=== PATIENT | male | born 1995 | race Caucasian/White ===

== ENCOUNTER 2019-03-16 14:43 | Inpatient (IN) | payer OTHER ==
--- NOTE | 2019-03-16 15:24 | ED ---
Psychiatric Complaint - HPI Summary HPI Summary: This pt is a 24 Y/O M presenting to [facility] accompanied by his mother with a CC of depression and suicidal ideations without a plan. He states that he was here for similar symptoms of depression a couple years ago. Currently he is in a medication change which he believes is affecting him. He states that he is increasing in weight, has been having trouble getting out of bed, states that he cant function in society and is currently having paranoia. He has no alleviating factors. He denies any fever, chills, N/V, abdominal pain, CP, SOB, homicidal ideations and headaches. He states that he has a PMHx of depression and a FHx of depression. - History Of Current Complaint Chief Complaint: EDMentalHealth Time Seen by Provider: 03/16/19 15:08 Hx Obtained From: Patient Onset/Duration: Gradual Onset, Still Present Timing: Constant Severity Initially: Moderate Severity Currently: Moderate Character: Depressed Aggravating Factor(s): Other - medication changes Alleviating Factor(s): Nothing Associated Signs And Symptoms: Positive: Negative - fever, chills, N/V, abdominal pain, CP, SOB, homicidal ideations and headaches, Paranoid Behavior, Sleep Disturbance, Social Withdrawal Related History: Positive For: Prior Psychiatric Issues Has Suicidal: Reports: Thoughts. Denies: With A Plan Has Homicidal: Denies: Thoughts, With A Plan Recent Stressor(s): medication changes - Allergies/Home Medications Allergies/Adverse Reactions: Allergies Allergy/AdvReac Type Severity Reaction Status Date / Time sulfamethoxazole Allergy Rash Verified 03/16/19 14:48 [From Bactrim] trimethoprim [From Bactrim] Allergy Rash Verified 03/16/19 14:48 PMH/Surg Hx/FS Hx/Imm Hx Previously Healthy: Yes Endocrine/Hematology History: Denies: Hx Diabetes Cardiovascular History: Denies: Hx Hypertension Respiratory History: Reports: Hx Asthma - as a child per pt. GI History: Reports: Other GI Disorders - anal fissure Psychiatric History: Reports: Hx Anxiety, Hx Depression, Hx Community Mental Health Tx Denies: Hx Eating Disorder, Hx of Violent Episodes Against Others - Surgical History Surgical History: None - Immunization History Immunizations Up to Date: Yes Infectious Disease History: No Infectious Disease History: Denies: History Other Infectious Disease, Traveled Outside the [place] in Last 30 Days - Family History Known Family History: Positive: Cardiac Disease - paternal , Other - depression : mother - Social History Occupation: Employed Full-time Lives: Alone Alcohol Use: Rare Hx Substance Use: No Substance Use Type: Reports: None Hx Tobacco Use: No Smoking Status (MU): Never Smoked Tobacco Review of Systems Negative: Fever, Chills Negative: Sore Throat Negative: Chest Pain Negative: Shortness Of Breath Negative: Abdominal Pain, Vomiting, Nausea Negative: Headache Psychological: Other - States Suicidal ideations, social withdrawl, paranoia Positive: Depressed, Other - NEGATIVE: homicidal ideations All Other Systems Reviewed And Are Negative: Yes Physical Exam - Summary Physical Exam Summary: VITAL SIGNS: Reviewed. GENERAL: Patient is a well-developed and obese male who is lying comfortable in the stretcher. Patient is not in any acute respiratory distress. HEAD AND FACE: No signs of trauma. No ecchymosis, hematomas or skull depressions. No sinus tenderness. EYES: PERRLA, EOMI x 2, No injected conjunctiva, no nystagmus. EARS: Hearing grossly intact. Ear canals and tympanic membranes are within normal limits. MOUTH: Oropharynx within normal limits. NECK: Supple, trachea is midline, no adenopathy, no JVD, no carotid bruit, no c- spine tenderness, neck with full ROM CHEST: Symmetric, no tenderness at palpation LUNGS: Clear to auscultation bilaterally. No wheezing or crackles. CVS: Regular rate and rhythm, S1 and S2 present, no murmurs or gallops appreciated. ABDOMEN: Soft, non-tender. No signs of distention. No rebound no guarding, and no masses palpated. Bowel sounds are normal. EXTREMITIES: FROM in all major joints, no edema, no cyanosis or clubbing. NEURO: Alert and oriented x 3. No acute neurological deficits. Speech is normal and follows commands. SKIN: Dry and warm Triage Information Reviewed: Yes Vital Signs On Initial Exam: Initial Vitals Temp Pulse Resp BP Pulse Ox 97.2 F 74 16 161/98 99 03/16/19 14:45 03/16/19 14:45 03/16/19 14:45 03/16/19 14:45 03/16/19 14:45 Vital Signs Reviewed: Yes Procedures - Sedation Patient Received Moderate/Deep Sedation with Procedure: No Diagnostics - Vital Signs Vital Signs Temp Pulse Resp BP Pulse Ox 03/16/19 14:45 97.2 F 74 16 161/98 99 - Laboratory Result Diagrams: 03/16/19 15:54 03/16/19 15:54 Lab Statement: Any lab studies that have been ordered have been reviewed, and results considered in the medical decision making process. Re-Evaluation - Re-Evaluation First Eval Re-Evaluation Time: 16:09 Change: Unchanged Comment: Pt was medically cleared for a MHE. Course/Dx - Course Assessment/Plan: This patient is a 24-year-old male who presents to the emergency room with a chief complaint of having suicidal ideation without a plan. Blood work w/o a significant abnormality. He is medically cleared. Patient will be signed out to Dr. Bhakta at shift change. He is awaiting a MHE. Patient is hemodynamically stable and A+O x 3. - Differential Dx/Clinical Impression Differential Diagnosis/HQI/PQRI: Positive: Depression, Suicidal Ideation - Will Provider Diagnosis: Depression - Physician Notifications Patient Is Medically Stable For: Psych Evaluation Discharge ED - Sign-Out/Discharge Documenting (check all that apply): Sign-Out Patient Signing out patient TO: Pierce Robles - Discharge Plan Condition: Stable Referrals: Andre Barajas MD [Medical Doctor] - - Billing Disposition and Condition Condition: STABLE - Attestation Statements Document Initiated by Aileen: Yes Documenting Scribe: Angel Salazar Provider For Whom Aileen is Documenting (Include Credential): Toño Frias MD Scribe Attestation: Angel Smart, scribed for Toño Frias MD on 03/16/19 at 1855. Scribe Documentation Reviewed: Yes Provider Attestation: The documentation as recorded by the Angel lopez accurately reflects the service I personally performed and the decisions made by me, Toño Frias MD Status of Scribe Document: Viewed
[2019-03-16 15:59] LABS: Urine Benzodiazepine Screen None Detected (None Detect); Urine Opiates Screen None Detected (None Detect)
[2019-03-16 16:00] LABS: ABS Basophils 0.1 10^3/ul (0-0.2); ABS Eosinophils 0.1 10^3/ul (0-0.6); ABS Lymphocytes 1.9 10^3/ul (1.0-4.8); ABS Monocytes 0.5 10^3/ul (0-0.8); ABS Neutrophils 3.6 10^3/ul (1.5-7.7); Eosinophil % 1.5 %; Hematocrit 44 % (42-52); Hemoglobin 15.2 g/dL (14.0-18.0); Lymphocyte % 30.1 %; Mean Corpuscular HGB Conc 34 g/dL (31-36); Mean Corpuscular Hemoglobin 28 pg (27-31); Mean Corpuscular Volume 81 fL (80-94); Mean Platelet Volume 8.1 fL (7.4-10.4); Nucleated Red Blood Cells % 0.1; Platelet Count 196 10^3/uL (150-450); Red Blood Count 5.52 10^6 /uL (4.18-5.48); Red Cell Distribution Width 13 % (10-15); White Blood Count 6.2 10^3/uL (3.5-10.8)
[2019-03-16 16:21] LABS: ALT 19 U/L (7-52); AST 21 U/L (13-39); Acetaminophen < 15 mcg/mL; Albumin 4.6 g/dL (3.2-5.2); Albumin/Globulin Ratio 1.6 (1-3); Alcohol < 10 mg/dL (<10); Alkaline Phosphatase 64 U/L (34-104); Anion Gap 7 mmol/L (2-11); BUN/Creatinine Ratio 15.4 (8-20); Blood Urea Nitrogen 14 mg/dL (6-24); CO2 Carbon Dioxide 27 mmol/L (22-32); Chloride 108 mmol/L (101-111); EGFR African American 122.8 (>60); EGFR Non-African American 101.5 (>60); Globulin 2.8 g/dL (2-4); Glucose 110 mg/dL (70-100); Potassium 4.2 mmol/L (3.5-5.0); Salicylate < 2.50 mg/dL (<30); Sodium 142 mmol/L (135-145); Total Protein 7.4 g/dL (6.4-8.9)
[2019-03-16 16:35] LABS: TSH (Thyroid Stimulating Horm) 4.43 mcIU/mL (0.34-5.60)
[2019-03-16 17:41] LABS: Urine Appearance Clear; Urine Color Yellow; Urine Specific Gravity 1.015 (1.010-1.030); Urine Urobilinogen Negative (Negative)
[2019-03-16 17:42] LABS: Urine Bilirubin Negative (Negative); Urine Blood Negative (Negative); Urine Glucose Negative (Negative); Urine Ketones Negative (Negative); Urine Nitrite Negative (Negative); Urine Protein 1+(30 mg/dL) (Negative)
[2019-03-16 18:05] LABS: Urine Bacteria Absent (Absent); Urine Red Blood Cell Absent (Absent); Urine White Blood Cell Absent (Absent)
--- NOTE | 2019-03-16 19:12 | ED ---
Progress - Progress Note Progress Note: Patient is received as a sign out from Dr. Frias to Dr. Robles at 03/16/19 1900 shift change pending disposition of this mental health patient. - Consult/PCP Time Called: 18:25 Re-Evaluation - Re-Evaluation First Eval Re-Evaluation Time: 16:09 Change: Unchanged Comment: Pt was medically cleared for a MHE. Course/Dx - Course Course Of Treatment: Patient is received as a sign out from Dr. Frias to Dr. Robles at 03/16/19 1900 shift change pending disposition of this mental health patient. churn tender Brie reports that the patient's case has been reviewed by Dr. Cole, patient will be a voluntary admit to [facility] psych. - Diagnoses Provider Diagnoses: Psychosis - Provider Notifications Discussed Care Of Patient With: Garret Cole Time Discussed With Above Provider: 20:12 Instructed by Provider To: Other - churn tender Brie reports that the patient' s case has been reviewed by Dr. Cole, patient will be a voluntary admit to [facility] psych. Discharge ED - Sign-Out/Discharge Documenting (check all that apply): Patient Departure - admit, Receiving Sign- Out Receiving patient FROM: Toño Frias - Discharge Plan Condition: Stable Disposition: PSYCHIATRIC FACILITY-[facility] - Billing Disposition and Condition Condition: STABLE Disposition: Psychiatric Facility [facility] - Attestation Statements Document Initiated by Aileen: Yes Documenting Scribe: GURMEET BRAMBILA Provider For Whom Aileen is Documenting (Include Credential): LASHAY ROBLES MD Scribe Attestation: GURMEET Smart scribed for LASHAY ROBLES MD on 03/17/19 at 0538. Scribe Documentation Reviewed: Yes Provider Attestation: The documentation as recorded by the GURMEET lopez accurately reflects the service I personally performed and the decisions made by me, LASHAY ROBLES MD Status of Scribe Document: Viewed
[2019-03-16] MEDS ORDERED: Al Hydrox/Mg Hydrox/Simet LIQ* 30 ML UDC PO PRN (21:49)
[2019-03-16] MEDS: traZODone TAB* 50 MG TAB PO SCH (23:15)
[2019-03-17] MEDS: Vitamin THERAPEUTIC TAB PO SCH (08:32)
[2019-03-17] MEDS: Lisinopril TAB* 10 MG PO SCH (08:32)
[2019-03-17] MEDS: Venlafaxine EXT RELEASE CAP* 75 MG PO SCH (11:45)
[2019-03-17] MEDS: cloNIDine TAB* 0.1 MG PO PRN (12:28)
[2019-03-17] MEDS: busPIRone TAB* 10 MG PO SCH ×2 (16:45→20:48)
--- NOTE | 2019-03-17 20:39 | HP ---
HISTORY AND PHYSICAL: DATE OF ADMISSION: 03/16/19 SUPERVISING PSYCHIATRIST: Hugo Hawley MD.* (DICTATED BY GARCIA LEOS NP) JUSTIFICATION FOR ADMISSION: The patient presented to the the emergency department with suicidal thoughts. The patient merits hospitalization for immediate safety and stabilization. CHIEF COMPLAINT: "I have stressing thoughts." HISTORY OF PRESENT ILLNESS: Leonidas is a 24-year-old white male, domiciled, unemployed who presented to the emergency department self referred with his father due to increased anxiety, difficulty leaving the house, and suicidal ideation in the past week. This is Leonidas's fourth hospitalization. His last hospitalization was at [facility] [place] 2014 at the same time of year. He had been here once in 2012 and twice in 2013. The patient reports he has been having increased difficulty with irritability, agitation, concentration. He states that he has trouble staying asleep and often tosses and turns a lot. He reports he has poor self-confidence and loses a lot of jobs because of this. He reports he is living with his father and is concerned about losing housing because this was supposed to be a temporary housing situation. The patient reports stopping prescribed Trintellix about 8 to 9 months ago. Since then he has been increasingly depressed, more irritable, and verbally agitated towards family. He reports overeating and stress eating carbs and snacks high in sodium. He states that he thought Trintellix was making him have increased weight. He denies obsessions or compulsions. He denies auditory or visual hallucinations. He states that he is working with [facility] and sees psych nurse practitioner Luisa Cowart and a psych pulmonary physical therapist named Sonny Orozco and a therapist named Lui. According to collateral, the patient was seeing a different therapist who is currently on maternity leave. It appears he is anxious to transition to this other therapist. The patient states that the team has encouraged him to go to the recovery center, what seems to be like a [facility] setup. He is quick to say that his parents do not think he should go there because it is primarily substance use people who go. He states that he went once and it was okay. It is more likely that he is avoiding interactions with other people. The patient reports he does not watch TV, but spends a majority of his time watching [employer] videos. He states that he has difficulty sleeping as stated above. I asked about his sleep pattern. He tends to go to sleep around 8 p.m. and sleeps until 2 or 3 a.m. He wakes up and takes trazodone and then sleeps for another 2 to 3 hours. He states that he spends a majority of his days in bed. He states that he has poor concentration and is concerned about ADHD. He also states that his current team is ruling out autism spectrum disorder. He tells me that his Team told him to come down here for an evaluation. He gave me the authority to and I did speak with his psychiatric nurse practitioner Luisa Cowart at [facility]. She saw him on Sunday of last week , 3 days after he had seen his primary care provider. She states that he often presents as anxious and wants to meet more often than necessary. She reports that she prescribed Ativan x1 for a job interview that he had scheduled for today. She states that Sonny Orozco is his psych pulmonary physical therapist who has been working with him very closely. He calls him daily, goes to his house often. The patient told me that Sonny is off this week. Luisa states that Sonny has been to the home and describes it as poorly cared for with multiple unpacked boxes. She states that Leonidas's father tends to be very demeaning to him, does not talk to him or treat him like he likes him. There has been limited reciprocal information from the father, but there is no known risk of Leonidas losing housing. She states that he wanted to stop Trintellix and has been weaning down, that he has been weaning more slowly than directed. I told her of my suggestion to change Trintellix to Effexor and she was agreeable with this. PAST PSYCHIATRIC HISTORY: As stated above. The patient is an active client of [facility] in [place]. He has been a client of [facility] [place] and saw Ruma Mills at the time. He was in therapy in the 11th grade and saw Gricelda Harvey. In the past, he has been a client of [facility]. INPATIENT: The patient denies any inpatient stays other than [facility]. He was hospitalized in 2018 and in February 2014 and March 2014. He had diagnoses at that time of major depressive disorder, social anxiety, rule out obsessive compulsive disorder, history of dysthymia. MEDICATION HISTORY: 1. Fluoxetine as high as 70 mg. 2. Bupropion. 3. Alprazolam. 4. Clonazepam. 5. Lorazepam. 6. Celexa. 7. Hydroxyzine. 8. Lamotrigine. 9. Venlafaxine. 10. Quetiapine. TRAUMA/ABUSE HISTORY: The patient's grandmother in 2011, the patient was very close to her. The patient's mother has a history of alcoholism. PAST MEDICAL HISTORY: 1. Hypertension. 2. Childhood asthma. 3. Anal fissure. 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 CURRENT MEDICATIONS: 1. Trintellix 10 mg p.o. daily. 2. Buspirone 10 mg 3 times a day. 3. Lisinopril 10 mg daily. 4. Trazodone 100 mg p.o. q.h.s. p.r.n. 5. Lorazepam 1 mg daily x3 days, was recently prescribed per [facility] and this was clarified by his outpatient prescriber. ALLERGIES: SULFA. FAMILY PSYCHIATRIC HISTORY: Mother with alcoholism, sister with depression, maternal uncle with opioid addiction. SOCIAL HISTORY: The patient was born in [place] and lived in [place] when they were young. They lived in a mobile home park and then moved to [place]. His parents in 2008. The patient has 2 older sisters, they live in the area. He has lived in between his father and his mother at various times. He reports living in [place] with his father for the last 2 years. He graduated from [employer], went to [employer] for about a year. He has worked at [employer] most recently up until 8 months ago. 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 The patient denies alcohol or substance use. Urine drug screen is negative. REVIEW OF SYSTEMS: Constitutional: Negative. No fever, chills, or fatigue. ENT : Negative. Cardiovascular: Negative. Denies chest pain or palpations. Respiratory: Negative. Denies shortness of breath or cough. Genitourinary: Negative. Musculoskeletal: Negative. Neurological: Negative. PHYSICAL EXAMINATION GENERAL: The patient is well-appearing and well-nourished, in no apparent distress. VITAL SIGNS: Height 5 feet 11 inches, weight 340 pounds. T 97.6, P 62, RR 18, O2 sat 100% on room air. BP 146/78. HEENT: Head and face: Normal head and face inspection. Eyes: Positive EOMI. PERRLA. Conjunctivae clear. NECK: Supple. Full ROM. Trachea midline. RESPIRATORY: Lung sounds clear to auscultation. Breath sounds present. CARDIOVASCULAR: Heart RRR. Pulses are symmetrical in both upper and lower extremities. MUSCULOSKELETAL: Normal Strength. ROM intact. NEUROLOGICAL: Normal sensory, motor intact. Alert and oriented x3 with normal gait. Cerebellar function intact. SKIN: Warm and dry. Color reflects adequate perfusion. LABORATORY DATA: CBC: RBC 5.52. Chemistry generally unremarkable. TSH is normal at 4.43. Urinalysis 1+ protein. Toxicology negative for salicylates, acetaminophen or alcohol. Urine drug screen is negative. MENTAL STATUS EXAM: Leonidas is a 24-year-old white male who appears slightly younger than stated age. He is causally dressed in his own clothing. Morbidly obese. His face is flushed. His eye contact is intense. He is anxiously cooperative. He is alert and oriented x3. Speech is soft with staccato rhythm. Concentration poor. Memory is 3/3. Mood is anxious with restricted affect. He is often shaking his legs bilaterally and alternately. Thought process is circumstantial, overinclusive. Thought content is positive for suicidal ideation and passive wish. He denies auditory or visual hallucinations. There are no perceptual disturbances noted. Insight and judgment are poor. Fund of knowledge is adequate. He appears to have average intellect by virtue of vocabulary and educational attainment. DIAGNOSES: 1. Major depressive disorder severe without psychotic features. 2. Generalized anxiety disorder, rule out obsessive compulsive disorder. 3. Binge eating disorder. ASSESSMENT: Leonidas is a 24-year-old white male with a history of depression, social anxiety, and psychiatric hospitalizations in the remote past, who presented to the ED due to worsening depression, anxiety, and suicidal thoughts. He has been working with [facility] in the recent past, although he is not stating that this is effective. He has been intermittently adherent to medications and been working with psych pulmonary physical therapist to help with vocational and other resources. Just so happens this pulmonary physical therapist is gone this week and the patient was recently transitioned to another therapist due to maternity leave. He has fears of losing housing, this will need to be clarified with his family. The patient was given much information about treating symptoms with various methods along with psychopharmacology as he is very medication focused. He has poor insight into anxiety and is concerned about other diagnoses. PLAN: The patient is admitted to adult behavioral services unit on voluntary status. Code status is full. He was placed on 15-minute checks for his safety. He is encouraged to participate in supportive milieu, individual sessions with staff and psychoeducational groups. We have already begun to obtain collateral from his current outpatient providers in [place]. The patient was tapered down off Trintellix, we will stop this and switch to venlafaxine for better treatment of depression and anxiety. The patient was offered clonidine p.r.n. for anxiety, and we will resume buspirone 10 three times a day. Estimated length of stay is 3 to 5 days. Discharge planning will include family involvement and outpatient providers. GARCIA LEOS NP [id number]/CPS #: [id number] MEGAN
[2019-03-17] MEDS: traZODone TAB* 50 MG TAB PO SCH (20:49)
[2019-03-18] MEDS: Venlafaxine EXT RELEASE CAP* 75 MG PO SCH (08:54)
[2019-03-18] MEDS: Lisinopril TAB* 10 MG PO SCH (08:54)
[2019-03-18] MEDS: busPIRone TAB* 10 MG PO SCH ×3 (08:54→21:33)
[2019-03-18] MEDS: Vitamin THERAPEUTIC TAB PO SCH (08:55)
--- NOTE | 2019-03-18 17:32 | PN ---
Subjective - Subjective Date of Service: 03/18/19 Service Type: 93178 Hosp care 35 min high complexity Subjective: Patient's father, Lui and sister, Annmarie were present for noon visiting hours. Manager Poker, Mando Witt GRAPHIC ARTS TECHNICIAN and above met for over one hour. We discussed diagnosis of FLORENCE and recommendations. Patient and family members asked pertinent questions and seemed receptive to feedback. We discussed patient strengths and potential motivating factors. Medication recommendations and rationale discussed. Patient had submitted 72-hour notice yesterday. He was given option to discharge today and preferred to remain in hospital to benefit from programming. Objective - General Observations Appearance: Well Groomed Stature: Overweight Posture: WNL Eye Contact: Intermittent Behavior/Activity: WNL - Interaction Observations Attitude Towards Examiner: Cooperative, Anxious Attitude Towards Parent/Guardian: Positive Interaction, Immature Stated Mood: Anxious Affect: Restricted Speech Pattern/Tone: Clear, Appropriate, Normal Volume Thought Process: Circumstantial, Racing Perception: WNL Thought Content: Preoccupation/Ruminations, Self-Deprecatory, Phobic Thought Process: Lethality: Passive Wish Hallucination Type: Denies Delusion Type: Denies - Cognitive Function Orientation: A&O x 4 Level of Consciousness: Alert Cognition: Impaired Attention/Concentration Estimated Intelligence: Normal Insight: Difficulty Acknowledging Presence of Psyciatric Problems Judgment Within Normal Limits: No Ability to Make Reasonable Decisions: Moderately Impaired - Medication Compliance Cooperative with Inpatient Medication Regimen: Yes - Group Participation Participates in Group Activities: Yes Assessment - Assessment Merits Inpatient Hospitalization: For Immediate Safety, For Stabilization Inpatient DSM-V Dx: 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 He has been intermittently adherent to medications and increasingly avoidant of socialization. He merits hospitalization for immediate safety and stabilization. Plan - Plan Treatment Plan: Name: LYN DICKINSON Birthdate: 1995 [id number] continue acute intensive psychiatric treatment. continue current medications. encourage journaling thoughts. discharge by end of week. Continued Medication Management: Start Medication Medications: Current Medications Acetaminophen (Tylenol Tab*) 650 mg PO Q4H PRN PRN Reason: PAIN or TEMP > 101 F Al Hydrox/Mg Hydrox/Simethicone (Maalox Plus*) 30 ml PO Q4H PRN PRN Reason: INDIGESTION Buspirone HCl (Buspar Tab*) 10 mg PO TID [facility] Last Admin: 03/18/19 14:18 Dose: 10 mg Clonidine HCl (Catapres Tab*) 0.1 mg PO TID PRN PRN Reason: AGITATION/ANXIETY Last Admin: 03/17/19 12:28 Dose: 0.1 mg Lisinopril (Prinivil Tab*) 10 mg PO DAILY [facility] Last Admin: 03/18/19 08:54 Dose: 10 mg Multivitamins (Theragran Tab*) 1 tab PO DAILY [facility] Last Admin: 03/18/19 08:55 Dose: Not Given Trazodone HCl (Desyrel Tab*) 150 mg PO BEDTIME [facility] Last Admin: 03/17/19 20:49 Dose: 150 mg Venlafaxine HCl (Effexor Xr Cap*) 75 mg PO DAILY [facility] Last Admin: 03/18/19 08:54 Dose: 75 mg - Discharge Plan Discharge Plan: Inpatient Hospitalization
[2019-03-18] MEDS: traZODone TAB* 50 MG TAB PO SCH (21:33)
[2019-03-19 06:50] LABS: HDL Cholesterol 33.2 mg/dL
[2019-03-19] MEDS: Lisinopril TAB* 10 MG PO SCH (08:01)
[2019-03-19] MEDS: Vitamin THERAPEUTIC TAB PO SCH (09:45)
[2019-03-19] MEDS: busPIRone TAB* 10 MG PO SCH ×3 (09:45→22:32)
[2019-03-19] MEDS: Venlafaxine EXT RELEASE CAP* 75 MG PO SCH (09:45)
--- NOTE | 2019-03-19 13:11 | PN ---
Subjective - Subjective Date of Service: 03/19/19 Service Type: [id number] Hosp care 15 min low complexity Subjective: Patient reports continued anxiety and ruminating about such. He reports improved sleep in that he was awake until 9 or 930 and woke around 3am. He is encouraged to attempt to stay awake later to promote improved sleep/wake cycle. Patient reminded to journal thoughts and to utilize prn medication. Objective - General Observations Appearance: Well Groomed Stature: Overweight Posture: Slumped Eye Contact: Average Behavior/Activity: WNL - Interaction Observations Attitude Towards Examiner: Cooperative, Anxious Stated Mood: Anxious Affect: Restricted Speech Pattern/Tone: Clear, Appropriate, Quiet Volume Thought Process: Circumstantial, Racing Perception: WNL Thought Content: Preoccupation/Ruminations, Depressive, Self-Deprecatory Thought Process: Lethality: Passive Wish Hallucination Type: Denies Delusion Type: Denies - Cognitive Function Orientation: A&O x 4 Level of Consciousness: Alert Cognition: Impaired Attention/Concentration Estimated Intelligence: Normal Insight: Difficulty Acknowledging Presence of Psyciatric Problems Judgment Within Normal Limits: No Ability to Make Reasonable Decisions: Moderately Impaired - Medication Compliance Cooperative with Inpatient Medication Regimen: Partial - Group Participation Participates in Group Activities: Partial Assessment - Assessment Merits Inpatient Hospitalization: For Immediate Safety, For Stabilization Inpatient DSM-V Dx: 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 He has been intermittently adherent to medications and increasingly avoidant of socialization. He merits hospitalization for immediate safety and stabilization. Plan - Plan Treatment Plan: Name: LYN DICKINSON Birthdate: 1995 [id number] continue acute intensive psychiatric treatment. continue current medications. encourage journaling thoughts and prn medication. discharge by end of week. Medications: Current Medications Acetaminophen (Tylenol Tab*) 650 mg PO Q4H PRN PRN Reason: PAIN or TEMP > 101 F Al Hydrox/Mg Hydrox/Simethicone (Maalox Plus*) 30 ml PO Q4H PRN PRN Reason: INDIGESTION Buspirone HCl (Buspar Tab*) 10 mg PO TID [facility] Last Admin: 03/19/19 09:45 Dose: 10 mg Clonidine HCl (Catapres Tab*) 0.1 mg PO TID PRN PRN Reason: AGITATION/ANXIETY Last Admin: 03/17/19 12:28 Dose: 0.1 mg Lisinopril (Prinivil Tab*) 10 mg PO DAILY [facility] Last Admin: 03/19/19 08:01 Dose: 10 mg Multivitamins (Theragran Tab*) 1 tab PO DAILY [facility] Last Admin: 03/19/19 09:45 Dose: Not Given Trazodone HCl (Desyrel Tab*) 150 mg PO BEDTIME [facility] Last Admin: 03/18/19 21:33 Dose: 150 mg Venlafaxine HCl (Effexor Xr Cap*) 150 mg PO DAILY [facility] - Discharge Plan Discharge Plan: Inpatient Hospitalization
[2019-03-19] MEDS: cloNIDine TAB* 0.1 MG PO PRN (13:34)
[2019-03-19] MEDS: traZODone TAB* 50 MG TAB PO SCH (22:16)
[2019-03-20] MEDS: Lisinopril TAB* 10 MG PO SCH (08:06)
[2019-03-20] MEDS: Vitamin THERAPEUTIC TAB PO SCH (08:06)
[2019-03-20] MEDS: busPIRone TAB* 10 MG PO SCH (08:58)
[2019-03-20] MEDS: Venlafaxine EXT RELEASE CAP* 75 MG PO SCH ×2 (09:24→11:05)
[2019-03-20] MEDS: cloNIDine TAB* 0.1 MG PO PRN (15:18)
--- NOTE | 2019-03-20 15:50 | PN ---
Subjective - Subjective Date of Service: 03/20/19 Service Type: [id number] Hosp care 15 min low complexity Subjective: Patient reports side effects and describes somatic complaints that are likely related to anxiety and panic. He reports feeling "spacey" yesterday and waking with feeling like he has sand in his eyes. Materials Scientist proposed possibility of viral sinus congestion. Patient encouraged to practice thought-stopping when thinking of medications and distract self. Encouraged to start to practice giving attention to previous suggestions for treatment of negative and anxious thoughts. Patient was offered to discharge today or to rescind 72-hour notice. Patient rescinded 72-hour notice. Objective - General Observations Appearance: Well Groomed Stature: Overweight Posture: WNL Eye Contact: Average Behavior/Activity: Agitated - Interaction Observations Attitude Towards Examiner: Cooperative, Anxious Stated Mood: Anxious Affect: Restricted Speech Pattern/Tone: Clear, Appropriate, Normal Volume Thought Process: Circumstantial, Racing Perception: WNL Thought Content: Preoccupation/Ruminations, Self-Deprecatory Thought Process: Lethality: Passive Wish Hallucination Type: Denies Delusion Type: Denies - Cognitive Function Orientation: A&O x 4 Level of Consciousness: Alert Cognition: Impaired Attention/Concentration Estimated Intelligence: Normal Insight: Difficulty Acknowledging Presence of Psyciatric Problems Judgment Within Normal Limits: No Ability to Make Reasonable Decisions: Moderately Impaired - Medication Compliance Cooperative with Inpatient Medication Regimen: Partial - Group Participation Participates in Group Activities: Yes Assessment - Assessment Merits Inpatient Hospitalization: For Immediate Safety, For Stabilization Inpatient DSM-V Dx: 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 He has been intermittently adherent to medications and increasingly avoidant of socialization. He merits hospitalization for immediate safety and stabilization. Plan - Plan Treatment Plan: Name: LYN DICKINSON Birthdate: 1995 [id number] continue acute intensive psychiatric treatment. may decrease to q30min and allow staff pass per RN discretion increase effexor XR to 150mg daily. DC buspirone. encourage journaling thoughts and prn medication. discharge to include outpatient providers and family. Medications: Current Medications Acetaminophen (Tylenol Tab*) 650 mg PO Q4H PRN PRN Reason: PAIN or TEMP > 101 F Al Hydrox/Mg Hydrox/Simethicone (Maalox Plus*) 30 ml PO Q4H PRN PRN Reason: INDIGESTION Clonidine HCl (Catapres Tab*) 0.1 mg PO TID PRN PRN Reason: AGITATION/ANXIETY Last Admin: 03/20/19 15:18 Dose: 0.1 mg Lisinopril (Prinivil Tab*) 10 mg PO DAILY [facility] Last Admin: 03/20/19 08:06 Dose: 10 mg Multivitamins (Theragran Tab*) 1 tab PO DAILY [facility] Last Admin: 03/20/19 08:06 Dose: Not Given Trazodone HCl (Desyrel Tab*) 150 mg PO BEDTIME [facility] Last Admin: 03/19/19 22:16 Dose: 100 mg Venlafaxine HCl (Effexor Xr Cap*) 150 mg PO DAILY [facility] Last Admin: 03/20/19 11:05 Dose: 150 mg - Discharge Plan Discharge Plan: Inpatient Hospitalization
[2019-03-20] MEDS: traZODone TAB* 50 MG TAB PO SCH (21:00)
[2019-03-21] MEDS: Venlafaxine EXT RELEASE CAP* 75 MG PO SCH (08:44)
[2019-03-21] MEDS: Lisinopril TAB* 10 MG PO SCH (08:44)
[2019-03-21] MEDS: Vitamin THERAPEUTIC TAB PO SCH (08:45)
[2019-03-21] MEDS: cloNIDine TAB* 0.1 MG PO PRN (12:07)
--- NOTE | 2019-03-21 14:18 | PN ---
Subjective - Subjective Date of Service: 03/21/19 Service Type: [id number] Hosp care 25 min moderate complexity Subjective: Patient reports utilizing distracting and calming techniques that were helpful for initiating sleep. He states he slept more soundly and woke up feeling calm. He states the calmness lasted approx 3 hours. He continues to endorse negative self talk and ruminating about what other people think about him. He states yesterday's visit with his father was "colin rough" and he describes blaming his father for learning poor communication styles. Land Surveyor Manager reframed to model an "I statement" he could use with his father. He is encouraged to play board games and such during visits with father. He states he played chess with his mother yesterday, which she initiated. He states he would be able to initiate games with father. Patient reports he gets overwhelmed when his mother expresses her stressors to him and that he is willing to express this to her. Patient education done regarding cognitive distortions and thought/mood record. He reports desire to work on this throughout the weekend. He journaled positive affirmations and read these aloud. Patient given much praise and validation for progress. Objective - General Observations Appearance: Well Groomed Stature: Overweight Posture: WNL Eye Contact: Average Behavior/Activity: WNL - Interaction Observations Attitude Towards Examiner: Cooperative, Anxious Stated Mood: Dysphoric, Anxious Affect: Blunted Speech Pattern/Tone: Clear, Appropriate, Normal Volume Thought Process: Circumstantial, Racing Perception: WNL Thought Content: Preoccupation/Ruminations, Self-Deprecatory Thought Process: Lethality: Passive Wish Hallucination Type: Denies Delusion Type: Denies - Cognitive Function Orientation: A&O x 4 Level of Consciousness: Alert Cognition: Impaired Attention/Concentration Estimated Intelligence: Normal Insight: WNL Judgment Within Normal Limits: Yes Ability to Make Reasonable Decisions: Moderately Impaired - Medication Compliance Cooperative with Inpatient Medication Regimen: Yes - Group Participation Participates in Group Activities: Yes Assessment - Assessment Merits Inpatient Hospitalization: For Immediate Safety, For Stabilization Inpatient DSM-V Dx: 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 He has been intermittently adherent to medications and increasingly avoidant of socialization. He merits hospitalization for immediate safety and stabilization. Plan - Plan Treatment Plan: Name: LYN DICKINSON Birthdate: 1995 [id number] continue acute intensive psychiatric treatment. may decrease to q30min and allow staff pass per RN discretion continue current medications. encourage CBT homework and prn medication. discharge to include outpatient providers and family. Medications: Current Medications Acetaminophen (Tylenol Tab*) 650 mg PO Q4H PRN PRN Reason: PAIN or TEMP > 101 F Al Hydrox/Mg Hydrox/Simethicone (Maalox Plus*) 30 ml PO Q4H PRN PRN Reason: INDIGESTION Clonidine HCl (Catapres Tab*) 0.1 mg PO TID PRN PRN Reason: AGITATION/ANXIETY Last Admin: 03/21/19 12:07 Dose: 0.1 mg Lisinopril (Prinivil Tab*) 10 mg PO DAILY [facility] Last Admin: 03/21/19 08:44 Dose: 10 mg Multivitamins (Theragran Tab*) 1 tab PO DAILY [facility] Last Admin: 03/21/19 08:45 Dose: Not Given Trazodone HCl (Desyrel Tab*) 150 mg PO BEDTIME [facility] Last Admin: 03/20/19 21:00 Dose: 150 mg Venlafaxine HCl (Effexor Xr Cap*) 150 mg PO DAILY [facility] Last Admin: 03/21/19 08:44 Dose: 150 mg - Discharge Plan Discharge Plan: Inpatient Hospitalization
[2019-03-21] MEDS: traZODone TAB* 50 MG TAB PO SCH (22:12)
[2019-03-22] MEDS: Lisinopril TAB* 10 MG PO SCH (08:05)
[2019-03-22] MEDS: Venlafaxine EXT RELEASE CAP* 75 MG PO SCH (10:05)
[2019-03-22] MEDS: Vitamin THERAPEUTIC TAB PO SCH (10:05)
[2019-03-22] MEDS: cloNIDine TAB* 0.1 MG PO PRN (18:29)
[2019-03-22] MEDS: traZODone TAB* 50 MG TAB PO SCH (21:07)
[2019-03-22] MEDS ORDERED: diPHENhydraMINE PO* 25 MG PO ONE (22:20)
[2019-03-22] MEDS ORDERED: diPHENhydraMINE PO* 25 MG ONE (22:30)
[2019-03-23] MEDS: cloNIDine TAB* 0.1 MG PO PRN ×3 (01:31→13:33)
[2019-03-23] MEDS: Vitamin THERAPEUTIC TAB PO SCH (08:41)
[2019-03-23] MEDS: Lisinopril TAB* 10 MG PO SCH (08:41)
[2019-03-23] MEDS: Venlafaxine EXT RELEASE CAP* 75 MG PO SCH (08:41)
[2019-03-23] MEDS: Acetaminophen TAB* 325 MG PO PRN (11:12)
[2019-03-23] MEDS ORDERED: Ondansetron TAB* 4 MG PO ONE (17:00)
[2019-03-23] MEDS: traZODone TAB* 50 MG TAB PO SCH (21:52)
[2019-03-24] MEDS: cloNIDine TAB* 0.1 MG PO PRN (03:33)
[2019-03-24] MEDS: Vitamin THERAPEUTIC TAB PO SCH (08:19)
[2019-03-24] MEDS: Lisinopril TAB* 10 MG PO SCH (08:19)
[2019-03-24] MEDS: Venlafaxine EXT RELEASE CAP* 75 MG PO SCH (08:19)
[2019-03-24] MEDS: GuaiFENesin DM 100 mg/10 mg in 5 ML UDC PO PRN ×2 (13:47→21:28)
[2019-03-24] MEDS ORDERED: diPHENhydraMINE PO* 50 MG PO PRN (15:57)
[2019-03-24] MEDS: Saline NASAL SPRAY 0.65%* BTL BOTH NARES PRN (16:25)
[2019-03-24] MEDS: Benzocaine/Menthol LOZ* 1 LOZENGE MT PRN ×2 (16:25→18:44)
[2019-03-24] MEDS: LORazepam TAB(*) 1 MG PO PRN (16:27)
--- NOTE | 2019-03-24 16:58 | PN ---
Subjective - Subjective Date of Service: 03/24/19 Service Type: [id number] Hosp care 35 min high complexity Subjective: Patient submitted 72-hour notice. He states he would prefer to be transferred to another psychiatric facility, that there is tension between he and staff members, that he wants to disregard any more treatment from here. He presents as extremely guarded and mistrustful of race and sports book writer. He states he wants me and SW to speak with his father but that he must be present when doing so. We phoned his father on speaker phone. Lyn states he is concerned about safety and being treated poorly by staff. He states they are looking at him in a disgusted manner and that he is guilty of "saying bad stuff about people in the past." Patient agrees to trial risperidone and lorazepam. He states he has side effects from venlafaxine and is agreeable to switch to duloxetine. He is experiencing symptoms of a cold and appropriately asks for benadryl, nasal spray , sore throat drops and mucinex. Objective - General Observations Appearance: Well Groomed Stature: Overweight Posture: Tense Eye Contact: Intense Behavior/Activity: Agitated - Interaction Observations Attitude Towards Examiner: Anxious, Mistrustful Stated Mood: Irritable, Anxious Affect: Restricted Speech Pattern/Tone: Clear, Appropriate, Quiet Volume Thought Process: Goal Directed, Circumstantial Perception: WNL Thought Content: Preoccupation/Ruminations, Paranoid Thought Process: Lethality: Paranoid Ideation Hallucination Type: Auditory, Visual Delusion Type: Persecution, Somatic - Cognitive Function Orientation: A&O x 4 Level of Consciousness: Alert Cognition: WNL Estimated Intelligence: Normal Insight: Mostly Blames Others for Problems, Difficulty Acknowledging Presence of Psyciatric Problems Judgment Within Normal Limits: No Ability to Make Reasonable Decisions: Serverely Impaired - Medication Compliance Cooperative with Inpatient Medication Regimen: Yes - Group Participation Participates in Group Activities: Yes Assessment - Assessment Merits Inpatient Hospitalization: For Immediate Safety, For Stabilization Inpatient DSM-V Dx: 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 He has been intermittently adherent to medications and increasingly avoidant of socialization. Since admission, he is more verbally expressive and endorsing paranoid ideation as well as AH and VH. He merits hospitalization for immediate safety and stabilization. Plan - Plan Treatment Plan: Name: LYN DICKINSON Birthdate: 1995 [id number] continue acute intensive psychiatric treatment. may decrease to q30min and allow staff pass per RN discretion may use computer per RN discretion. DC venlafaxine, trial duloxetine. add risperidone 2mg qhs and lorazepam 1mg q4h prn anxiety. For sinus congestion: add guaifenesin, saline nasal spray, cepacol lozenges and diphenhydramine. Continued Medication Management: Start Medication Medications: Current Medications Acetaminophen (Tylenol Tab*) 650 mg PO Q4H PRN PRN Reason: PAIN or TEMP > 101 F Last Admin: 03/23/19 11:12 Dose: 650 mg Al Hydrox/Mg Hydrox/Simethicone (Maalox Plus*) 30 ml PO Q4H PRN PRN Reason: INDIGESTION Last Admin: 03/24/19 01:29 Dose: 30 ml Diphenhydramine HCl (Benadryl Po*) 50 mg PO BEDTIME PRN PRN Reason: insomnia/allergic reaction Duloxetine HCl (Cymbalta Cap*) 60 mg PO DAILY [facility] Guaifenesin/Dextromethorphan (Robitussin Dm*) 10 ml PO Q6H PRN PRN Reason: COUGH Last Admin: 03/24/19 13:47 Dose: 10 ml Lisinopril (Prinivil Tab*) 10 mg PO DAILY [facility] Last Admin: 03/24/19 08:19 Dose: 10 mg Lorazepam (Ativan Tab(*)) 1 mg PO Q4H PRN PRN Reason: ANXIETY Last Admin: 03/24/19 16:27 Dose: 1 mg Multivitamins (Theragran Tab*) 1 tab PO DAILY [facility] Last Admin: 03/24/19 08:19 Dose: 1 tab Risperidone (Risperdal*) 2 mg PO BEDTIME [facility] Sodium Chloride (Sodium Chloride 0.65% Nasal [facility]*) 1 spray BOTH NARES Q4H PRN PRN Reason: CONGESTION Last Admin: 03/24/19 16:25 Dose: 1 spray Throat Lozenges (Chloraseptic Zenon*) 1 zenon MT Q2HR PRN PRN Reason: Sore Throat Last Admin: 03/24/19 16:25 Dose: 1 zenon Trazodone HCl (Desyrel Tab*) 150 mg PO BEDTIME [facility] Last Admin: 03/23/19 21:52 Dose: 150 mg - Discharge Plan Discharge Plan: Inpatient Hospitalization
[2019-03-24] MEDS: Acetaminophen TAB* 325 MG PO PRN (18:44)
[2019-03-24] MEDS: risperiDONE TAB* 2 MG PO SCH (21:27)
[2019-03-24] MEDS: traZODone TAB* 50 MG TAB PO SCH (21:28)
[2019-03-25] MEDS: Saline NASAL SPRAY 0.65%* BTL BOTH NARES PRN ×3 (04:51→17:25)
[2019-03-25] MEDS: GuaiFENesin DM 100 mg/10 mg in 5 ML UDC PO PRN ×2 (04:52→11:09)
[2019-03-25] MEDS: Benzocaine/Menthol LOZ* 1 LOZENGE MT PRN ×3 (04:52→15:24)
[2019-03-25] MEDS: DULoxetine DR CAP* 60 MG CAP.DR PO SCH (08:27)
[2019-03-25] MEDS: Lisinopril TAB* 10 MG PO SCH (08:27)
[2019-03-25] MEDS: Vitamin THERAPEUTIC TAB PO SCH (08:31)
[2019-03-25] MEDS: LORazepam TAB(*) 1 MG PO PRN (12:26)
[2019-03-25] MEDS ORDERED: Ibuprofen TAB* 600 MG PO PRN (13:32)
[2019-03-25] MEDS: risperiDONE TAB* 2 MG PO SCH (21:07)
[2019-03-25] MEDS: traZODone TAB* 50 MG TAB PO SCH (21:07)
[2019-03-26] MEDS: Lisinopril TAB* 10 MG PO SCH (08:11)
[2019-03-26] MEDS: Vitamin THERAPEUTIC TAB PO SCH (08:11)
[2019-03-26] MEDS: DULoxetine DR CAP* 60 MG CAP.DR PO SCH (08:11)
[2019-03-26 08:58] VITALS: BP 144/84
--- NOTE | 2019-03-26 10:23 | DCNOTE ---
Subjective - Subjective Service Types: 01247 Hosp DC Day Mgmt simple under 30 min Discharge Date: 03/26/19 Subjective: Patient reports improved sleep and anxiety. He states he is ready for discharge. Both of his parents have reported much improvement in his presentation. Coverstitch Machine Operator and Mnado Witt LMSW notified patient and family of much improved social interactions and verbal communication. Patient noted to smile and even laugh at times. Patient's mother present for discharge. He has demonstrated improvement in reframing negative and paranoid thoughts. He reports motivation to continue with [facility] and recovery efforts. Objective - General Observations Appearance: Well Groomed Stature: Overweight Posture: WNL Eye Contact: Average Behavior/Activity: WNL - Interaction Observations Attitude Towards Examiner: Cooperative Attitude Towards Parent/Guardian: Positive Interaction Stated Mood: Euthymic Affect: Full Speech Pattern/Tone: Clear, Appropriate, Normal Volume Thought Process: Coherent, Goal Directed Perception: WNL Thought Content: Preoccupation/Ruminations Hallucination Type: Denies Delusion Type: Denies - Cognitive Function Orientation: A&O x 4 Level of Consciousness: Alert Cognition: WNL Estimated Intelligence: Normal Insight: WNL Judgment Within Normal Limits: Yes - Medication Compliance Cooperative with Inpatient Medication Regimen: Yes - Group Participation Participates in Group Activities: Yes DC Assessment - Assessment Clinical Impression: 24yo wm, domiciled, unemployed with history of 3 previous hospitalizations who presented to ED with c/o worsening anxiety and suicidal ideation. He has been intermittently adherent to medications and increasingly avoidant of socialization. Since admission, he is more verbally expressive and endorsing paranoid ideation as well as AH and VH. He tolerated addition of risperidone and lorazepam with good effect. He has stabilized in this structured setting. Merits Inpatient Hospitalization: No Clear for Discharge: Adequate Clinical Respons, Acceptable Safety Profile Inpatient DSM-V Dx: F41.1 Discharge Planning - Discharge Planning Discharge Plan: Outpatient Follow Up Outpatient Program: [facility] Recommendations for Continuing Care: Medication Management, Psychotherapy, Primary Care Followup Medications: Current Medications Diphenhydramine HCl (Benadryl Po*) 50 mg PO BEDTIME PRN PRN Reason: insomnia/allergic reaction Duloxetine HCl (Cymbalta Cap*) 60 mg PO DAILY [facility] Last Admin: 03/26/19 08:11 Dose: 60 mg Guaifenesin/Dextromethorphan (Robitussin Dm*) 10 ml PO Q6H PRN PRN Reason: COUGH Last Admin: 03/25/19 11:09 Dose: 10 ml Ibuprofen (Motrin Tab*) 600 mg PO Q6H PRN PRN Reason: PAIN - MILD Lisinopril (Prinivil Tab*) 10 mg PO DAILY [facility] Last Admin: 03/26/19 08:11 Dose: 10 mg Lorazepam (Ativan Tab(*)) 1 mg PO BID PRN PRN Reason: ANXIETY Last Admin: 03/25/19 12:26 Dose: 1 mg Multivitamins (Theragran Tab*) 1 tab PO DAILY [facility] Last Admin: 03/26/19 08:11 Dose: 1 tab Risperidone (Risperdal*) 2 mg PO BEDTIME [facility] Last Admin: 03/25/19 21:07 Dose: 2 mg Sodium Chloride (Sodium Chloride 0.65% Nasal [facility]*) 1 spray BOTH NARES Q4H PRN PRN Reason: CONGESTION Last Admin: 03/25/19 17:25 Dose: 1 spray Trazodone HCl (Desyrel Tab*) 150 mg PO BEDTIME [facility] Last Admin: 03/25/19 21:07 Dose: 150 mg Discharge Planning: Prescriptions provided for discharge [x] Yes [] No [facility] Patient response to discharge plan: [x] eager for discharge [x] agreeable with discharge plan [] ambivalent about discharge [] disagrees with discharge today
[2019-03-26] MEDS: LORazepam TAB(*) 1 MG PO PRN (10:50)
--- NOTE | 2019-03-27 01:15 | DS ---
CC: [facility] * DISCHARGE SUMMARY: DATE OF ADMISSION: 03/16/19 DATE OF DISCHARGE: 03/26/19 SUPERVISING PSYCHIATRIST: Rick Ruiz MD * (DICTATED BY GARCIA LEOS NP) DISCHARGE DIAGNOSES: Generalized anxiety disorder; major depressive disorder, severe with psychotic features. CONDITION AT THE TIME OF DISCHARGE: Improved. The patient reports improved sleep and anxiety. He states he is ready for discharge. Both of his parents have reported much improvement in his presentation. The patient is noted to have responded well especially to lorazepam and risperidone. He is also taking duloxetine with no untoward effects. He has demonstrated improvement in reframing negative paranoid thoughts. He reports motivation to continue with [address] and recovery efforts. He has denied suicidal ideation throughout the hospitalization. The patient is discharged to home. MENTAL STATUS EXAMINATION: Leonidas is a 24-year-old white male, who appears stated age. He is obese, well groomed, casually dressed. He is cooperative and pleasant. He is alert and oriented x3. Eye contact is good. Speech is soft , articulate, and spontaneous. Concentration is good. Memory is 3/3. Thought process is logical, goal-directed, coherent. Thought content is negative for suicidal ideation and passive wish. He denies any HI or . He continues to endorse mild delusions that other people are thinking negatively about him. There are no other perceptual disturbances noted. Insight and judgment are fair, improved. Fund of knowledge is adequate. Intelligence is estimated to be average. DISCHARGE INSTRUCTIONS GIVEN TO THE PATIENT: A. Medications: 1. Diphenhydramine 50 mg p.o. q.h.s. p.r.n. insomnia. 2. Duloxetine 60 mg p.o. daily. 3. Guaifenesin dextromethorphan OTC he can continue. 4. Ibuprofen OTC. 5. Lisinopril 10 mg p.o. daily. 6. Lorazepam 1 mg p.o. b.i.d. p.r.n. 7. Risperidone 2 mg p.o. q.h.s. 8. Trazodone 150 mg p.o. q.h.s. B. Diet: Regular. Low-cholesterol. C. Activity: As tolerated. Tobacco cessation is not applicable. There are no pending labs or diagnostic studies. Labs were as follows: CBC is normal. Chemistry normal. Hemoglobin A1c is normal at 5.5. Lipid panel showed mildly elevated cholesterol. TSH is normal. Urinalysis is negative. Toxicology is negative. D. Followup care: The patient will return to [facility] in [place] and has an appointment day after discharge with psychiatric nurse practitioner, Luisa Cowart, and he will be scheduled with an appointment with his therapist at that time. E. Substance use followup: Not applicable. HOSPITAL COURSE: Part A: Reason for admission: The patient presented to the emergency department with suicidal thoughts. Leonidas is a 24-year-old white male , domiciled, unemployed, who presented to the ED, self-referred with his father due to increased anxiety, difficulty living in the house, and suicidal ideation in the past week. This is Leonidas's first hospitalization. [place] [facility] [place] the same time of the year. He had been here once in 2012 and twice in 2013. The patient reports he has been having increased difficulty with irritability, agitation, and concentration. He states that he has trouble staying asleep and often tosses and turns a lot. He reports he has poor self competence and loses a lot of jobs because of this. He reports he is living with his father and is concerned about losing housing because this is supposed to be a temporary housing situation. The patient reports stopping prescribed Trintellix about 8 to 9 months ago. Since then, he has been increasingly depressed, more irritable, and verbally agitated towards family. He reports overeating and stress eating carbs and snacks high in sodium. He states that he thought Trintellix was making him have increased weight. He denies obsessions or compulsions. He denies auditory or visual hallucinations. He states that he is working with [facility] and sees psychiatric nurse practitioner, Luisa Cowart, and a psych passenger conductor named Sonny Orozco and a therapist named Lui. According to collateral, the patient was seeing a different therapist, who is currently on maternity leave. It appears he is anxious to transition to this other therapist. The patient states that the team has encouraged him to go to the recovery center, which seems like a [facility] setup. He is quick to say that his parents do not think he should go there because it is primarily substance use. He states that he went once and it was okay. It is more likely he is avoiding interactions with other people. The patient reports he does not watch TV, but spends a majority of his time watching the YouTube videos. He states that he has difficulty sleeping. I asked about his sleep pattern. He tends to go to sleep around 8 p.m. and sleeps until 2 or 3 a.m. He wakes up and takes trazodone and then sleeps for another 2 to 3 hours. He states he spends a majority of his days in bed. He has poor concentration. He states he is concerned about ADHD and the current team is ruling out autism spectrum disorder. He tells me that his team told him to come down here for an evaluation. He gave me the authority to and I did speak with his psychiatric nurse practitioner, Luisa Cowart at [facility]. She saw him on Sunday of last week, 3 days after he had seen his primary care provider. She states he often presents as anxious and wants to meet more often than necessary. She reports that she prescribed Ativan x1 for a job interview that he has had scheduled for today. She states that Sonny Orozco is his psych passenger conductor, who has been working with him very closely. The patient told me that Sonny is off this week. Luisa states that Sonny has been to the home and describes it as poorly cared for with multiple unpacked boxes. She states that Leonidas's father tends to be very demeaning to him, does not talk to him or treat him that like he likes him. There has been limited reciprocal information from the father, but there is no known risk of Leonidas losing housing. She states he wanted to stop Trintellix and has been weaning down, that he has been weaning more slowly than directed. I told her of my suggestion to change Trintellix to Effexor and she is agreeable with this. Part B: Psychiatric treatment rendered: The patient was admitted to adult behavioral services unit on voluntary status. Code status is full. He was placed on 15-minute checks for safety. He was encouraged to participate in the supportive milieu, individual sessions with staff and psychoeducational groups. Since the patient was being tapered off of Trintellix, we stopped and switched to venlafaxine for better treatment of depression and anxiety. The patient was offered clonidine p.r.n. for anxiety and initially we resumed buspirone three times a day. The following day, the patient submitted 72-hour notice. He did not feel the hospital was going to be treating him correctly. He met with his father and sister along with commercial underwriter and adoption social worker, Mando Penaloza LMSW. We discussed the diagnosis of FLORENCE and recommendations. The patient and family members asked pertinent questions and seemed receptive to feedback. We discussed the patient's strengths and potential motivating factors. Recommendation for medication and the rationale were discussed. He was given option to be discharged today or to resend a 72-hour notice, and he preferred to remain in the hospital. The patient reported much somatic complaints and attributed this to medications. He requested to stop buspirone, which was respected and done. He reported night sweats and various other side effects. Some of these were likely attributed to anxiety. He attributed to venlafaxine. We discontinued venlafaxine and switched to duloxetine, which the patient took without any untoward effects. Throughout the hospitalization, the patient was increasingly guarded. He endorsed visual and auditory hallucinations. He submitted another 72-hour notice. He stated that he would prefer to be transferred to another psychiatric facility. He stated that there was tension between he and staff members and that he wanted to disregard anymore treatment from here. He presented as extremely guarded and was threatful of this commercial underwriter. He wanted me to speak with his father, but only with him and adoption social worker present. We phoned his father on a speaker phone. The patient reported being concerned about safety and being treated poorly by the staff. He reported they were looking at him in a disgusting manner and that he is guilty of saying bad stuff about people in the past. He agreed to try risperidone and lorazepam. He was experiencing symptoms of cold and appropriately asked for Benadryl nasal spray, sore throat drops, and Mucinex. The patient responded extremely well to lorazepam and risperidone. He continued to report some thoughts that people did not like him or they were out to get him. He was encouraged to continue taking medications and this will improve. The patient's family was present for treatment and discharge planning. They were supportive and receptive to information. The patient denied suicidal ideation throughout the hospitalization. He became much more well related. He was noted to have much improvement in social interactions. He also was much more verbally expressive towards the end of the hospitalization. The patient reported desire to be discharged today. Both of his parents were notified and agreeable to this plan. The patient was encouraged to call with any questions or concerns after discharge. GARCIA LEOS NP [id number]/[facility] #: [id number] MEGAN
== END 2019-03-26 12:44 | disposition home or self-care (01) | DRG 756 ==
LOC: ED 14:43 → BSU 20:46
PROVIDERS: ADMIT Psychiatry & Neurology Psychiatry; ATTEND Psychiatry & Neurology Psychiatry
DX: F41.1 Generalized anxiety disorder (principal); Z68.42 Body mass index [BMI] 45.0-49.9, adult; R45.851 Suicidal ideations; F33.3 Major depressive disorder, recurrent, severe with psychotic symptoms; E66.01 Morbid (severe) obesity due to excess calories; I10 Essential (primary) hypertension; J45.909 Unspecified asthma, uncomplicated; K60.2 Anal fissure, unspecified; F50.81 Binge eating disorder; Z79.899 Other long term (current) drug therapy; Z81.1 Family history of alcohol abuse and dependence; Z88.2 Allergy status to sulfonamides; Z85.820 Personal history of malignant melanoma of skin; Z81.8 Family history of other mental and behavioral disorders; Z81.3 Family history of other psychoactive substance abuse and dependence
CPT/HCPCS: 36415; 80053; 80061; 80307; 80320; 80329; 81003; 81015; 83036; 84443; 85025; 99222; 99231; 99232; 99233; 99238; 99284; A9270-GY; G0480

== ENCOUNTER 2019-03-30 12:15 | Inpatient (IN) | payer OTHER ==
[2019-03-30 14:18] LABS: ABS Basophils 0.1 10^3/ul (0-0.2); ABS Eosinophils 0.2 10^3/ul (0-0.6); ABS Monocytes 0.5 10^3/ul (0-0.8); ABS Neutrophils 4.2 10^3/ul (1.5-7.7); Eosinophil % 2.4 %; Hematocrit 44 % (42-52); Lymphocyte % 28.3 %; Mean Corpuscular HGB Conc 34 g/dL (31-36); Mean Corpuscular Hemoglobin 28 pg (27-31); Mean Corpuscular Volume 81 fL (80-94); Mean Platelet Volume 8.2 fL (7.4-10.4); Platelet Count 203 10^3/uL (150-450); Red Cell Distribution Width 13 % (10-15); White Blood Count 6.9 10^3/uL (3.5-10.8)
[2019-03-30 14:35] LABS: ALT 23 U/L (7-52); AST 18 U/L (13-39); Albumin 4.2 g/dL (3.2-5.2); Albumin/Globulin Ratio 1.6 (1-3); Alkaline Phosphatase 60 U/L (34-104); Anion Gap 7 mmol/L (2-11); BUN/Creatinine Ratio 21.6 (8-20); Blood Urea Nitrogen 19 mg/dL (6-24); CO2 Carbon Dioxide 26 mmol/L (22-32); Calcium 9.4 mg/dL (8.6-10.3); Chloride 106 mmol/L (101-111); EGFR African American 127.7 (>60); EGFR Non-African American 105.5 (>60); Globulin 2.7 g/dL (2-4); Glucose 115 mg/dL (70-100); Sodium 139 mmol/L (135-145); Total Protein 6.9 g/dL (6.4-8.9)
[2019-03-30 14:44] LABS: Acetaminophen < 15 mcg/mL; Alcohol < 10 mg/dL (<10); Salicylate < 2.50 mg/dL (<30)
[2019-03-30 15:00] LABS: TSH (Thyroid Stimulating Horm) 3.69 mcIU/mL (0.34-5.60)
[2019-03-30] MEDS ORDERED: Acetaminophen TAB* 325 MG PO PRN (15:01)
[2019-03-30] MEDS ORDERED: diPHENhydraMINE PO* 50 MG PO PRN (15:02)
[2019-03-30] MEDS ORDERED: Al Hydrox/Mg Hydrox/Simet LIQ* 30 ML UDC PO PRN (15:41)
[2019-03-30] MEDS ORDERED: Ibuprofen TAB* 600 MG PO PRN (15:42)
[2019-03-30] MEDS ORDERED: Saline NASAL SPRAY 0.65%* BTL BOTH NARES PRN (15:43)
[2019-03-30 16:05] LABS: Urine Appearance Clear; Urine Bilirubin Negative (Negative); Urine Blood Negative (Negative); Urine Color Yellow; Urine Glucose Negative (Negative); Urine Ketones Negative (Negative); Urine Nitrite Negative (Negative); Urine Protein Negative (Negative); Urine Specific Gravity 1.017 (1.010-1.030); Urine Urobilinogen Negative (Negative)
--- NOTE | 2019-03-30 16:20 | ED ---
Psychiatric Complaint - HPI Summary HPI Summary: This patient is a 24 year old M presenting [facility] accompanied by mother with a chief complaint of depression. Pt was discharged from [facility] 03/26/19 after being admitted for depression and anxiety when his medications were changed. Pt reports he was admitted 3 x 4 yrs ago for the same symptoms. Dx major depression, anxiety disorder. Denies any MHx and SHx. Admits suicidal ideation which is new for him. Mother is not comfortable taking pt home in this state. - History Of Current Complaint Chief Complaint: EDSuicidal Time Seen by Provider: 03/30/19 12:28 Hx Obtained From: Patient Onset/Duration: Still Present Timing: Constant Aggravating Factor(s): Nothing Alleviating Factor(s): Nothing Has Suicidal: Reports: Thoughts - Allergies/Home Medications Allergies/Adverse Reactions: Allergies Allergy/AdvReac Type Severity Reaction Status Date / Time sulfamethoxazole Allergy Rash Verified 03/30/19 12:26 [From Bactrim] trimethoprim [From Bactrim] Allergy Rash Verified 03/30/19 12:26 PMH/Surg Hx/FS Hx/Imm Hx Endocrine/Hematology History: Denies: Hx Diabetes Cardiovascular History: Reports: Hx Hypertension Respiratory History: Reports: Hx Asthma - as a child per pt. 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 - Surgical History Surgery Procedure, Year, and Place: melanoma removed from left ear Infectious Disease History: No Infectious Disease History: Denies: History Other Infectious Disease, Traveled Outside the [place] in Last 30 Days - Family History Known Family History: Positive: Cardiac Disease - paternal , Other - depression : mother - Social History Alcohol Use: None Hx Substance Use: No Substance Use Type: Reports: None Hx Tobacco Use: No Smoking Status (MU): Never Smoked Tobacco Review of Systems Negative: Fever Positive: Anxious, Depressed, Other - SI All Other Systems Reviewed And Are Negative: Yes Physical Exam - Summary Physical Exam Summary: Constitutional: Well-developed, Well-nourished, Alert. (-) Distressed Skin: Warm, Dry HENT: Normocephalic; Atraumatic Eyes: Conjunctiva normal Neck: Musculoskeletal ROM normal neck. (-) JVD, (-) Stridor, (-) Nuchal rigidity Cardio: Rhythm regular, rate normal, Heart sounds normal; Intact distal pulses; Radial pulses are 2+ and symmetric. (-) Murmur Pulmonary/Chest wall: Effort normal. (-) Respiratory distress, (-) Wheezes, (-) Rales Abd: Soft, (-) tenderness, (-) Distension, (-) Guarding, (-) Rebound Musculoskeletal: (-) Edema Neuro: Alert, Oriented x3 Psych: depressed mood and positive SI Triage Information Reviewed: Yes Vital Signs On Initial Exam: Initial Vitals Temp Pulse Resp BP Pulse Ox 98.2 F 98 16 123/93 99 03/30/19 12:21 03/30/19 12:21 03/30/19 12:21 03/30/19 12:21 03/30/19 12:21 Vital Signs Reviewed: Yes Diagnostics - Vital Signs Vital Signs Temp Pulse Resp BP Pulse Ox 03/30/19 12:21 98.2 F 98 16 123/93 99 - Laboratory Lab Results: Lab Results 03/30/19 03/30/19 Range/Units 14:09 14:09 WBC 6.9 (3.5-10.8) 10^3/uL RBC 5.40 (4.18-5.48) 10^6 /uL Hgb 15.0 (14.0-18.0) g/dL Hct 44 (42-52) % MCV 81 (80-94) fL MCH 28 (27-31) pg MCHC 34 (31-36) g/dL RDW 13 (10-15) % Plt Count 203 (150-450) 10^3/uL MPV 8.2 (7.4-10.4) fL Neut % (Auto) 60.9 % Lymph % (Auto) 28.3 % Branch % (Auto) 7.4 % Eos % (Auto) 2.4 % Baso % (Auto) 1.0 % Absolute Neuts (auto) 4.2 (1.5-7.7) 10^3/ul Absolute Lymphs (auto) 2.0 (1.0-4.8) 10^3/ul Absolute Monos (auto) 0.5 (0-0.8) 10^3/ul Absolute Eos (auto) 0.2 (0-0.6) 10^3/ul Absolute Basos (auto) 0.1 (0-0.2) 10^3/ul Absolute Nucleated RBC 0.0 10^3/ul Nucleated RBC % 0.0 Sodium 139 (135-145) mmol/L Potassium 4.0 (3.5-5.0) mmol/L Chloride 106 (101-111) mmol/L Carbon Dioxide 26 (22-32) mmol/L Anion Gap 7 (2-11) mmol/L BUN 19 (6-24) mg/dL Creatinine 0.88 (0.67-1.17) mg/dL Est GFR ( Amer) 127.7 (>60) Est GFR (Non-Af Amer) 105.5 (>60) BUN/Creatinine Ratio 21.6 H (8-20) Glucose 115 H (70-100) mg/dL Calcium 9.4 (8.6-10.3) mg/dL Total Bilirubin 0.40 (0.2-1.0) mg/dL AST 18 (13-39) U/L ALT 23 (7-52) U/L Alkaline Phosphatase 60 (34-104) U/L Total Protein 6.9 (6.4-8.9) g/dL Albumin 4.2 (3.2-5.2) g/dL Globulin 2.7 (2-4) g/dL Albumin/Globulin Ratio 1.6 (1-3) TSH 3.69 (0.34-5.60) mcIU/mL Salicylates < 2.50 (<30) mg/dL Acetaminophen < 15 mcg/mL Serum Alcohol < 10 (<10) mg/dL Result Diagrams: 03/30/19 14:09 03/30/19 14:09 Lab Statement: Any lab studies that have been ordered have been reviewed, and results considered in the medical decision making process. Course/Dx - Course Course Of Treatment: 24-year-old male with a history of depression and anxiety presents with suicidal ideation. Patient will be seen by the mental health team. Patient has no medical complaints at this time - Differential Dx/Clinical Impression Provider Diagnosis: Unspecified psychosis - Physician Notifications Discussed Care Of Patient With: Hugo Chandan Time Discussed With Above Provider: 15:50 Instructed by Provider To: Admit As Inpatient Discharge ED - Sign-Out/Discharge Documenting (check all that apply): Patient Departure - admit All imaging exams completed and their final reports reviewed: Yes - Discharge Plan Condition: Stable Disposition: ADMITTED TO [facility] - Billing Disposition and Condition Condition: STABLE Disposition: Admitted to [facility] - Attestation Statements Document Initiated by Erice: Yes Documenting Scribe: Nancy Bustamante Provider For Whom Aileen is Documenting (Include Credential): Dr. Duc Salazar MD Scribe Attestation: Nancy Smart scribed for Dr. Duc Salazar MD on 03/30/19 at 1652. Scribe Documentation Reviewed: Yes Provider Attestation: The documentation as recorded by the Nancy lopez accurately reflects the service I personally performed and the decisions made by me, Dr. Duc Salazar MD Status of Scribe Document: Viewed
[2019-03-30 16:25] LABS: Urine Benzodiazepine Screen None Detected (None Detect); Urine Opiates Screen None Detected (None Detect)
[2019-03-30] MEDS: LORazepam TAB(*) 1 MG PO PRN (18:43)
[2019-03-30] MEDS: GuaiFENesin DM 100 mg/10 mg in 5 ML UDC PO PRN (18:43)
[2019-03-30] MEDS: traZODone TAB* 50 MG TAB PO SCH (20:36)
[2019-03-30] MEDS ORDERED: risperiDONE TAB* 2 MG PO SCH (21:00)
[2019-03-31] MEDS ORDERED: Influenza VAC *QUAD* 2019-20* 0.5 ML SYRINGE IM ONE (09:00)
[2019-03-31] MEDS ORDERED: DULoxetine DR CAP* 60 MG CAP.DR PO SCH (09:00)
[2019-03-31] MEDS: Vitamin THERAPEUTIC TAB PO SCH (09:47)
[2019-03-31] MEDS: Lisinopril TAB* 10 MG PO SCH (09:47)
[2019-03-31] MEDS: LORazepam TAB(*) 1 MG PO PRN (09:49)
--- NOTE | 2019-03-31 15:31 | HP ---
HISTORY AND PHYSICAL: DATE OF ADMISSION: 03/30/19 PROVIDER: Marina Doll NP, in Psychiatry. SUPERVISING PHYSICIAN: Hugo Hawley MD * (DICTATED BY AMRINA DOLL NP ) JUSTIFICATION FOR ADMISSION: The patient is in need of 24-hour supervision and care secondary to suicidal ideation. CHIEF COMPLAINT: "I have been still really depressed, very anxious still. I did feel suicidal since discharge. The last couple days, I have thought of jumping out of a car or jumping into traffic." HISTORY OF PRESENT ILLNESS: The patient is a 24-year-old single white male with a history of depression, anxiety, and racing thoughts, who arrives brought in by his parents and is here on a voluntary status after returning to the emergency department after discharge a few days prior with symptoms of suicide. Leonidas states he has been feeling impulsive. He also notes he has been " spiteful about the situation:" The situation is that he has 13,000 dollars in debt, 9000 dollars of that is a car loan. He has also got bills from the hospital, he says, which likely total an amount of more than 14,000 dollars. This is an odd thing as he had not mentioned that earlier, but that is what he says was spurring his suicidal ideation. Leonidas sits very quietly in the comfort room with me and Mando Penaloza, [employer]OC[employer], and his mother, Radha Lara. He is pleasant and he has on occasion a smile on his face, but he is nearly silent most of the time. When I asked him what is going on in his head that he is so quiet, he states he has racing thoughts, he cannot name what those thoughts are about, and he states that they keep him quiet a lot of the time. It seems that he cannot find his thoughts much of the time and that is something that is causing him great anxiety. Upon his discharge here, he was given Risperdal, duloxetine, and Ativan. He went to see his psychiatrist and it seems he has a great deal of trust in this person. She suggested that he stop Risperdal and he did try that for 1 day, but he states he could not sleep following that. He suggests himself that he try Abilify and Lexapro. He is not excited about Ativan, so we will change it to Klonopin. He states he was having suicidal ideation on Sunday night. He states his racing thoughts are "making me disengaged," and he is looking for more support. His sleep has been disrupted. His interest is reduced. His energy is reduced. He complaints that Risperdal is making him drowsy. He is unable to concentrate. He is sitting quite still and walks somewhat slowly. PAST PSYCHIATRIC HISTORY: This is Leonidas's fifth hospitalization. He was hospitalized at the beginning of March of this year only 2 weeks ago. His first hospitalization before that was at [facility] in 2013, also in March. He had been here once in 2012 and twice in 2013. He has tried [facility]. He is working with [facility] in [place]; sees nurse practitioner, Luisa Cowart; psych special agent, Sonny Orozco; and a therapist named Lui. According to the collateral, the patient was seeing a different therapist who is currently on maternity leave. He is anxious about transitioning to the therapist Lui. He has also been a client of [facility] [place] and saw Gladys Mills at that time. He was in therapy in the eleventh grade and saw Gricelda Harvey. In the past, he has been a client of [facility]. He denies any inpatient stays other than [facility]. He had diagnoses at those prior times of major depressive disorder, social anxiety, rule out of obsessive compulsive disorder, and a history of dysthymia. MEDICATION HISTORY: 1. Fluoxetine as high as 70 mg. 2. Bupropion. 3. Alprazolam. 4. Clonazepam. 5. Lorazepam. 6. Celexa. 7. Hydroxyzine. 8. Lamotrigine. 9. Venlafaxine. 10. Quetiapine. 11. Risperdal. 12. Effexor. 13. Duloxetine. TRAUMA/ABUSE HISTORY: The patient's grandmother in 2011, the patient was very close to her. Leonidas's mother has a history of alcoholism, depression, and anxiety. PAST MEDICAL HISTORY: 1. Hypertension. 2. Childhood asthma. 3. Anal fissure. 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 CURRENT MEDICATIONS: 1. Risperdal 1 mg. 2. Duloxetine. 3. Ativan 0.5 p.r.n. ALLERGIES: SULFA. FAMILY PSYCHIATRIC HISTORY: Mother with alcoholism. Sister with depression. Maternal uncle with opioid addiction. SOCIAL HISTORY: The patient was born in [place] and lives in [place]. He lived in a mobile home park and then moved to [place]. His parents in 2008. Leonidas has 2 older sisters, they live in the area. He has lived in between his father and his mother at various times. He reports living in [place] with his father for the last 2 years. He graduated from [place] [employer], went to [employer] for about a year. He has worked at [employer] most recently up until 8 months ago. 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 He was working recently for [employer]. 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 The patient denies alcohol or substance abuse. Urine drug screen is negative. REVIEW OF SYSTEMS: Constitutional: Negative. No fever, chills, or fatigue. ENT: Negative. Cardiovascular: Negative. Denies chest pain or palpitations. Respiratory: Negative. Denies shortness of breath or cough. Genitourinary: Negative. Musculoskeletal: Negative. Neurological: Negative. PHYSICAL EXAMINATION CONSTITUTIONAL: Well developed, well nourished, alert. VITAL SIGNS: On 03/31/19 at 0803, temperature was 97.8, pulse 87, respirations 16, O2 sat on room air 99, blood pressure 125/76. HEENT: Normocephalic, atraumatic. Eyes: Conjunctivae normal. NECK: Musculoskeletal range of motion normal neck. No JVD. No stridor. No nuchal rigidity. PULMONARY: Chest wall, effort normal. No respiratory distress. No wheezes. No rales. CARDIO: Regular rhythm, rate normal. Heart sounds normal. Intact distal pulses. Radial pulses are 2+ and symmetric. No murmur. ABDOMEN: Soft, nontender. No distention. No guarding. No rebound. MUSCULOSKELETAL: No edema. NEURO: Alert and oriented x4. SKIN: Warm and dry. LABORATORY DATA: Most data are within normal limits. Exceptions include BUN- creatinine ratio high at 21.6, glucose high at 115. Hemoglobin A1c is normal at 5.5. Triglycerides are 148, cholesterol 178, LDL cholesterol 115, HDL cholesterol 33.2. TSH is normal at 3.69. Urinalysis normal and toxicology screen is negative for all drugs of abuse. MENTAL STATUS EXAM: Leonidas is 5 feet 11 inches, weighs 335 pounds man wearing shorts and a hoodie. His grooming is good. He sits quite still. He is calm and cooperative. His speech is in normal rate and tone, the volume is soft. There are latencies in his speech. He is dysthymic. His affect is restrictive. His thought processes appear to be normal, but he describes them as racing. He is not delusional. He is not homicidal. He is suicidal at this time. He is not hallucinating. His insight is fair. His judgment is good. He is alert and oriented x4. DIAGNOSES: 1. Mood disorder, not otherwise specified. 2. Anxiety disorder, 3. rule out psychotic disorder. IMPRESSION: Leonidas is a 24-year-old single white male who comes to the hospital for the second time in a month, this time with suicidal ideation with a plan to jump out of the car or run into traffic. PLAN: The patient is admitted to the adult behavioral health unit and placed on q.15 minute checks for his own safety. He is encouraged to participate in supportive milieu, individual and group therapies. Estimated length of stay is 3 to 5 days. We will titrate medications to efficacy including changing to Abilify 5 mg and Lexapro 10 mg, possibly changing to Klonopin instead of Ativan. We will monitor for mood and thought content. Discharge planning will include family involvement including his mother Radha as well as his outpatient providers. MARINA DOLL, SHRUTI [id number]/CPS #: [id number] MEGAN
[2019-03-31] MEDS ORDERED: ARIPiprazole TAB* 5 MG PO SCH (21:00)
[2019-03-31] MEDS: clonazePAM TAB(*) 1 MG PO SCH (21:38)
[2019-03-31] MEDS: Escitalopram * 10 MG TAB PO SCH (21:39)
[2019-03-31] MEDS: traZODone TAB* 50 MG TAB PO SCH (21:39)
[2019-04-01] MEDS ORDERED: Influenza VAC *QUAD* 2019-20* 0.5 ML SYRINGE IM ONE (09:00)
[2019-04-01] MEDS: clonazePAM TAB(*) 1 MG PO SCH ×2 (09:12→20:45)
[2019-04-01] MEDS: Lisinopril TAB* 10 MG PO SCH (09:12)
[2019-04-01] MEDS: Vitamin THERAPEUTIC TAB PO SCH (09:13)
--- NOTE | 2019-04-01 13:51 | PN ---
Subjective - Subjective Date of Service: 04/01/19 Service Type: 88140 Hosp care 25 min moderate complexity Subjective: Lyn is found lying on his bed with his mom and his mom's friend. They have been talking with Mando about Lyn's condition and attempting to reassure each other that things will be okay. They talk about partial hospitalization and want to know how is will be kept accountable. Mando wisely indicates that it will be up to Lyn to keep himself accountable and eventually to reassure himself as much as he can. He discusses his thought processes and also demonstrates significant latencies in speech. He is showing more emotion on his face than at admission and is smiling at times. He did at one point sit with his arms crossed and a mildly angry look on his face. It took him time, but he acknowledged it as spiteful; still he could not identify what it was that was bothering him. He and his mom explore that Lyn got angry with his sister and called CPS to start an investigation. Lyn admits that he doesn't know what made him do that and he doesn't know what he was angry about. All of this information adds up to a more severe psychotic disorder than originally thought. This information, that Sheilas disorder may be psychotic in nature, is shared with Lyn and his mom, Julieta. Objective - General Observations Appearance: Neat Appears Stated Age: Yes Stature: Overweight Posture: Slumped Eye Contact: Average Behavior/Activity: Slowed - Interaction Observations Attitude Towards Examiner: Defensive, Evasive Stated Mood: Dysphoric, Irritable, Anxious Affect: Blunted Speech Pattern/Tone: Clear Thought Process: Coherent, Racing Perception: WNL Thought Content: Preoccupation/Ruminations Thought Process: Lethality: Paranoid Ideation Hallucination Type: Denies Delusion Type: Denies - Cognitive Function Orientation: A&O x 4 Level of Consciousness: Awake, Alert, Appropriate Cognition: WNL Estimated Intelligence: Normal Insight: Difficulty Acknowledging Presence of Psyciatric Problems Judgment Within Normal Limits: No Ability to Make Reasonable Decisions: Moderately Impaired - Medication Compliance Cooperative with Inpatient Medication Regimen: Partial - Group Participation Participates in Group Activities: Yes Assessment - Assessment Merits Inpatient Hospitalization: For Immediate Safety Clinical Impression: Lyn is a 24-year-old man who is historically diagnosed with depression and anxiety but may have a more pressing psychotic component to his presentation who comes to the [facility] after only approximately 1.5 weeks away. Plan - Plan Treatment Plan: Name: LYN DICKINSON Birthdate: 1995 [id number] Lyn agreed to Abilify and Lexapro yesterday but did not take the Lexapro last night. Upon further discussion with him and his mom, it seems that it is most important for him to have an increased dose of antipsychotic. We will raise that to 10 mg with the understanding that it may be the quispe to his feeling better. Continued Medication Management: Different Medication Medications: Current Medications Acetaminophen (Tylenol Tab*) 650 mg PO Q4H PRN PRN Reason: PAIN or TEMP > 101 F Last Admin: 03/31/19 18:29 Dose: 650 mg Al Hydrox/Mg Hydrox/Simethicone (Maalox Plus*) 30 ml PO Q4H PRN PRN Reason: INDIGESTION Al Hydrox/Mg Hydrox/Simethicone (Maalox Plus*) 30 ml PO Q4H PRN PRN Reason: INDIGESTION Aripiprazole (Abilify Tab*) 10 mg PO BEDTIME KATJA Clonazepam (Klonopin Tab(*)) 1 mg PO BID [facility] Last Admin: 04/01/19 09:12 Dose: 1 mg Diphenhydramine HCl (Benadryl Po*) 50 mg PO BEDTIME PRN PRN Reason: .INSOMNIA/ALLERGIC RXN Escitalopram Oxalate (Lexapro *) 10 mg PO BEDTIME [facility] Last Admin: 03/31/19 21:39 Dose: Not Given Guaifenesin/Dextromethorphan (Robitussin Dm*) 10 ml PO Q6H PRN PRN Reason: COUGH Last Admin: 03/30/19 18:43 Dose: 10 ml Ibuprofen (Motrin Tab*) 600 mg PO Q6H PRN PRN Reason: PAIN - MILD Lisinopril (Prinivil Tab*) 10 mg PO DAILY [facility] Last Admin: 04/01/19 09:12 Dose: 10 mg Multivitamins (Theragran Tab*) 1 tab PO DAILY [facility] Last Admin: 04/01/19 09:13 Dose: Not Given Sodium Chloride (Sodium Chloride 0.65% Nasal [place]*) 1 spray BOTH NARES Q4H PRN PRN Reason: CONGESTION Trazodone HCl (Desyrel Tab*) 150 mg PO BEDTIME KATJA Last Admin: 03/31/19 21:39 Dose: 150 mg - Discharge Plan Discharge Plan: Outpatient Follow Up
[2019-04-01] MEDS: Escitalopram * 10 MG TAB PO SCH (20:45)
[2019-04-01] MEDS: traZODone TAB* 50 MG TAB PO SCH (20:46)
[2019-04-01] MEDS: GuaiFENesin DM 100 mg/10 mg in 5 ML UDC PO PRN (20:50)
[2019-04-01] MEDS ORDERED: ARIPiprazole TAB* 5 MG PO SCH (21:00)
[2019-04-02] MEDS: clonazePAM TAB(*) 1 MG PO SCH ×2 (08:26→20:54)
[2019-04-02] MEDS: Lisinopril TAB* 10 MG PO SCH (08:27)
[2019-04-02] MEDS: Vitamin THERAPEUTIC TAB PO SCH (08:28)
[2019-04-02 09:00] LABS: HDL Cholesterol 38.1 mg/dL
--- NOTE | 2019-04-02 16:54 | PN ---
BSU: Group Therapy Note - Service Type Service Type: 70451 Group Psychotherapy - Medication Education Group: Patient was attentive and participatory in group, and remained in good behavioral control. Patient expressed positive insights regarding relevant treatment interventions. Patient stated understanding of material discussed and had appropriate questions.
[2019-04-02] MEDS ORDERED: Lurasidone(*) 60 MG TAB PO SCH (17:00)
[2019-04-02] MEDS: traZODone TAB* 50 MG TAB PO SCH (20:54)
[2019-04-02] MEDS: Escitalopram * 10 MG TAB PO SCH (20:54)
[2019-04-03] MEDS: Vitamin THERAPEUTIC TAB PO SCH (09:27)
[2019-04-03] MEDS: Lisinopril TAB* 10 MG PO SCH (09:27)
[2019-04-03] MEDS: clonazePAM TAB(*) 1 MG PO SCH (09:28)
--- NOTE | 2019-04-03 15:02 | PN ---
Subjective - Subjective Date of Service: 04/02/19 Service Type: 76343 Hosp care 25 min moderate complexity Subjective: Leonidas has a variety of concerns and brings up feeling more depressed today. He also determines that although he requested Abilify, he would prefer that I prescribe what would be the best for him, rather than what he is comfortable for him. We will start Latuda 60 mg and he is agreeable. He requested a ancillary specialist consult so that he could have healthier options. He states the meals are too heavy. Objective - General Observations Appearance: Neat, Well Groomed Appears Stated Age: Yes Stature: Overweight Posture: WNL Eye Contact: Average Behavior/Activity: Slowed - Interaction Observations Attitude Towards Examiner: Cooperative, Anxious, Defensive Stated Mood: Dysphoric Affect: Flat Speech Pattern/Tone: Clear Thought Process: Coherent, Racing, [place] Perception: WNL Thought Content: Preoccupation/Ruminations, Paranoid Thought Process: Lethality: Passive Wish Hallucination Type: Denies Delusion Type: Denies - Cognitive Function Orientation: A&O x 4 Level of Consciousness: Awake, Alert, Appropriate Cognition: Impaired Cognition, Impaired Attention/Concentration, Impaired Ability to Abstract Estimated Intelligence: Normal Insight: WNL Judgment Within Normal Limits: No Ability to Make Reasonable Decisions: Moderately Impaired - Medication Compliance Cooperative with Inpatient Medication Regimen: Yes - Group Participation Participates in Group Activities: Partial Assessment - Assessment Merits Inpatient Hospitalization: For Immediate Safety Clinical Impression: Leonidas is a 24-year-old man who is historically diagnosed with depression and anxiety but may have a more pressing psychotic component to his presentation who comes to the [facility] after only approximately 1.5 weeks away. Plan - Plan Treatment Plan: Name: LEONIDAS DICKINSON Birthdate: 1995 [id number] Leonidas agreed to Abilify and Lexapro yesterday but did not take the Lexapro last night. Upon further discussion with him and his mom, it seems that it is most important for him to have an increased dose of antipsychotic. We will raise that to 10 mg with the understanding that it may be the quispe to his feeling better. 04/02/19 Leonidas no longer wants to take Abilify and instead would like to take a more effective medication like Latuda. We will start at 60 mg. He is also interested in becoming more healthy. Continued Medication Management: Different Medication Medications: Current Medications Acetaminophen (Tylenol Tab*) 650 mg PO Q4H PRN PRN Reason: PAIN or TEMP > 101 F Last Admin: 03/31/19 18:29 Dose: 650 mg Al Hydrox/Mg Hydrox/Simethicone (Maalox Plus*) 30 ml PO Q4H PRN PRN Reason: INDIGESTION Clonazepam (Klonopin Tab(*)) 1 mg PO BID [facility] Last Admin: 04/03/19 09:28 Dose: 1 mg Diphenhydramine HCl (Benadryl Po*) 50 mg PO BEDTIME PRN PRN Reason: .INSOMNIA/ALLERGIC RXN Escitalopram Oxalate (Lexapro *) 10 mg PO BEDTIME [facility] Last Admin: 04/02/19 20:54 Dose: 10 mg Guaifenesin/Dextromethorphan (Robitussin Dm*) 10 ml PO Q6H PRN PRN Reason: COUGH Last Admin: 04/01/19 20:50 Dose: 10 ml Ibuprofen (Motrin Tab*) 600 mg PO Q6H PRN PRN Reason: PAIN - MILD Lisinopril (Prinivil Tab*) 10 mg PO DAILY [facility] Last Admin: 04/03/19 09:27 Dose: 10 mg Lurasidone HCl (Latuda) 60 mg PO DAILY@1700 [facility] Last Admin: 04/02/19 17:47 Dose: 60 mg Multivitamins (Theragran Tab*) 1 tab PO DAILY [facility] Last Admin: 04/03/19 09:27 Dose: Not Given Sodium Chloride (Sodium Chloride 0.65% Nasal [place]*) 1 spray BOTH NARES Q4H PRN PRN Reason: CONGESTION Trazodone HCl (Desyrel Tab*) 150 mg PO BEDTIME [facility] Last Admin: 04/02/19 20:54 Dose: 150 mg - Discharge Plan Discharge Plan: Outpatient Follow Up
--- NOTE | 2019-04-03 16:06 | PN ---
Subjective - Subjective Date of Service: 04/03/19 Service Type: 17796 Hosp care 25 min moderate complexity Subjective: Today Leonidas and his mother requested to meet at lunch time. Leonidas reveals that he is still depressed today and that he has been feeling agitated by other patients and has been feeling aggressive toward them, but has not acted on those things. He suggests that he should have a mood stabilizer and describes distinct episodes of jeremy that include purchasing jewelry and a car, both of which he couldn't afford. He states he has also broken things on purpose. He then goes on to describes strange episodes from his life including throwing pool balls at his sister's head, "squishing" an aquarium fish so he could show his sister, and wanting to run away from the family when mom and sister were fighting. His mom indicates that Leonidas shouldn't leave the hospital today because he isn' t motivated and feels depressed. After discussing that the plan had been to discharge him on Sunday, Leonidas revealed what was previously mentioned. Leonidas endorsed hearing noises in his head like "dump trucks." Collateral from nurses indicates that he is also suggesting that people are talking about him and he is becoming agitated. Objective - General Observations Appearance: Neat Appears Stated Age: Yes Stature: Overweight Posture: Slumped Eye Contact: Intermittent Behavior/Activity: Slowed - Interaction Observations Attitude Towards Examiner: Anxious, Defensive, Demanding Stated Mood: Dysphoric, Irritable, Anxious Affect: Flat Speech Pattern/Tone: Clear, Delayed Thought Process: Coherent, Racing Perception: WNL Thought Content: Preoccupation/Ruminations, Paranoid Hallucination Type: Auditory Delusion Type: Persecution - Cognitive Function Orientation: A&O x 4 Level of Consciousness: Awake, Alert, Appropriate Cognition: Impaired Cognition, Impaired Attention/Concentration, Impaired Ability to Abstract Estimated Intelligence: Normal Insight: WNL Judgment Within Normal Limits: No Ability to Make Reasonable Decisions: Moderately Impaired - Medication Compliance Cooperative with Inpatient Medication Regimen: Yes - Group Participation Participates in Group Activities: Partial Assessment - Assessment Merits Inpatient Hospitalization: For Immediate Safety Clinical Impression: Leonidas is a 24-year-old man who is historically diagnosed with depression and anxiety but may have a more pressing psychotic component to his presentation who comes to the [facility] after only approximately 1.5 weeks away. Plan - Plan Treatment Plan: Name: LEONIDAS DICKINSON Birthdate: 1995 [id number] Leonidas agreed to Abilify and Lexapro yesterday but did not take the Lexapro last night. Upon further discussion with him and his mom, it seems that it is most important for him to have an increased dose of antipsychotic. We will raise that to 10 mg with the understanding that it may be the quispe to his feeling better. 04/02/19 Leonidas no longer wants to take Abilify and instead would like to take a more effective medication like Latuda. We will start at 60 mg. He is also interested in becoming more healthy. 04/03/19 Leonidas's Latuda is increased to 80 mg tonight. He has been minimizing symptoms and it now seems clear that his psychosis is more developed than previously observed. Although Leonidas is advocating for his needs more, it does seem that he is trying to solve an array of problems he has not previously shared. We will go slowly, increasing only the Latuda rather than adding an additional mood stabilizer. Medications: Current Medications Acetaminophen (Tylenol Tab*) 650 mg PO Q4H PRN PRN Reason: PAIN or TEMP > 101 F Last Admin: 03/31/19 18:29 Dose: 650 mg Al Hydrox/Mg Hydrox/Simethicone (Maalox Plus*) 30 ml PO Q4H PRN PRN Reason: INDIGESTION Clonazepam (Klonopin Tab(*)) 1 mg PO BID [facility] Last Admin: 04/03/19 09:28 Dose: 1 mg Diphenhydramine HCl (Benadryl Po*) 50 mg PO BEDTIME PRN PRN Reason: .INSOMNIA/ALLERGIC RXN Escitalopram Oxalate (Lexapro *) 10 mg PO BEDTIME KATJA Last Admin: 04/02/19 20:54 Dose: 10 mg Guaifenesin/Dextromethorphan (Robitussin Dm*) 10 ml PO Q6H PRN PRN Reason: COUGH Last Admin: 04/01/19 20:50 Dose: 10 ml Ibuprofen (Motrin Tab*) 600 mg PO Q6H PRN PRN Reason: PAIN - MILD Lisinopril (Prinivil Tab*) 10 mg PO DAILY [facility] Last Admin: 04/03/19 09:27 Dose: 10 mg Lurasidone HCl (Latuda) 60 mg PO DAILY@1700 [facility] Last Admin: 04/02/19 17:47 Dose: 60 mg Multivitamins (Theragran Tab*) 1 tab PO DAILY [facility] Last Admin: 04/03/19 09:27 Dose: Not Given Sodium Chloride (Sodium Chloride 0.65% Nasal [place]*) 1 spray BOTH NARES Q4H PRN PRN Reason: CONGESTION Trazodone HCl (Desyrel Tab*) 150 mg PO BEDTIME [facility] Last Admin: 04/02/19 20:54 Dose: 150 mg - Discharge Plan Discharge Plan: Outpatient Follow Up
[2019-04-03] MEDS ORDERED: risperiDONE-M * 1 MG TAB.ORADIS PO PRN (16:07)
[2019-04-03] MEDS ORDERED: clonazePAM TAB(*) 1 MG PO PRN (16:08)
[2019-04-03] MEDS ORDERED: Lurasidone(*) 80 MG TAB PO SCH (17:00)
[2019-04-03] MEDS: Escitalopram * 10 MG TAB PO SCH (21:41)
[2019-04-03] MEDS: traZODone TAB* 50 MG TAB PO SCH (21:41)
[2019-04-04] MEDS: Lisinopril TAB* 10 MG PO SCH (09:32)
[2019-04-04] MEDS: Vitamin THERAPEUTIC TAB PO SCH (09:32)
--- NOTE | 2019-04-04 15:22 | PN ---
Subjective - Subjective Date of Service: 04/04/19 Service Type: [id number] Hosp care 25 min moderate complexity Subjective: Leonidas's father is interested in him coming home Sunday, but Leonidas's mother would like him to stay the weekend. Leonidas eventually agrees to stay the weekend in part to tolerate the agitation he's feeling with the Latuda dosing. We are increasing to 120 mg this weekend. Leonidas is not reliably participating in the programming on the unit, but he is happier than he has been. He has been seen smiling with his peers and engaging in games and activities with them. He has been sleeping well and a lot, but he states it might be due to stress. He has decided not to use the diet that the copying machine mechanic ordered, which was to help him lose weight. He felt like it wasn't enough food, so he decided not to follow the plan. Objective - General Observations Appearance: Neat, Well Groomed Appears Stated Age: Yes Stature: Overweight Posture: WNL Eye Contact: Intermittent Behavior/Activity: WNL, Slowed - Interaction Observations Attitude Towards Examiner: Cooperative Stated Mood: Dysphoric Affect: Blunted Speech Pattern/Tone: Clear Thought Process: Coherent Perception: WNL Thought Content: Preoccupation/Ruminations, Self-Deprecatory Hallucination Type: None Delusion Type: None - Cognitive Function Orientation: A&O x 4 Level of Consciousness: Awake, Alert, Appropriate Cognition: WNL Estimated Intelligence: Normal Insight: WNL Judgment Within Normal Limits: No Ability to Make Reasonable Decisions: Mildly Impaired - Medication Compliance Cooperative with Inpatient Medication Regimen: Yes - Group Participation Participates in Group Activities: Partial Assessment - Assessment Merits Inpatient Hospitalization: For Immediate Safety Inpatient DSM-V Dx: F31.64 Clinical Impression: Leonidas is a 24-year-old man who is historically diagnosed with depression and anxiety but may have a more pressing psychotic component to his presentation who comes to the [facility] after only approximately 1.5 weeks away. Plan - Plan Treatment Plan: Name: LEONIDAS DICKINSON Birthdate: 1995 [id number] Leonidas agreed to Abilify and Lexapro yesterday but did not take the Lexapro last night. Upon further discussion with him and his mom, it seems that it is most important for him to have an increased dose of antipsychotic. We will raise that to 10 mg with the understanding that it may be the quispe to his feeling better. 04/02/19 Leonidas no longer wants to take Abilify and instead would like to take a more effective medication like Latuda. We will start at 60 mg. He is also interested in becoming more healthy. 04/03/19 Leonidas's Latuda is increased to 80 mg tonight. He has been minimizing symptoms and it now seems clear that his psychosis is more developed than previously observed. Although Leonidas is advocating for his needs more, it does seem that he is trying to solve an array of problems he has not previously shared. We will go slowly, increasing only the Latuda rather than adding an additional mood stabilizer. 04/04/19 Latuda to be increased to 120 mg over the weekend. Stop the order for the restricted diet. Encourage participation with peers. Continued Medication Management: Different Medication Medications: Current Medications Acetaminophen (Tylenol Tab*) 650 mg PO Q4H PRN PRN Reason: PAIN or TEMP > 101 F Last Admin: 03/31/19 18:29 Dose: 650 mg Al Hydrox/Mg Hydrox/Simethicone (Maalox Plus*) 30 ml PO Q4H PRN PRN Reason: INDIGESTION Clonazepam (Klonopin Tab(*)) 1 mg PO BID PRN PRN Reason: anxiety/agitation Last Admin: 04/04/19 09:34 Dose: 1 mg Diphenhydramine HCl (Benadryl Po*) 50 mg PO BEDTIME PRN PRN Reason: .INSOMNIA/ALLERGIC RXN Escitalopram Oxalate (Lexapro *) 10 mg PO BEDTIME [facility] Last Admin: 04/03/19 21:41 Dose: 10 mg Guaifenesin/Dextromethorphan (Robitussin Dm*) 10 ml PO Q6H PRN PRN Reason: COUGH Last Admin: 04/01/19 20:50 Dose: 10 ml Ibuprofen (Motrin Tab*) 600 mg PO Q6H PRN PRN Reason: PAIN - MILD Lisinopril (Prinivil Tab*) 10 mg PO DAILY [facility] Last Admin: 04/04/19 09:32 Dose: 10 mg Lurasidone HCl (Latuda) 120 mg PO DAILY@1700 KATJA Multivitamins (Theragran Tab*) 1 tab PO DAILY [facility] Last Admin: 04/04/19 09:32 Dose: Not Given Risperidone (Risperdal-M Tab *) 2 mg PO Q6H PRN; Protocol PRN Reason: AGITATION Sodium Chloride (Sodium Chloride 0.65% Nasal [place]*) 1 spray BOTH NARES Q4H PRN PRN Reason: CONGESTION Trazodone HCl (Desyrel Tab*) 150 mg PO BEDTIME KATJA Last Admin: 04/03/19 21:41 Dose: 150 mg - Discharge Plan Discharge Plan: Outpatient Follow Up
[2019-04-04] MEDS ORDERED: clonazePAM TAB(*) 1 MG PO PRN (16:30)
[2019-04-04] MEDS: Lurasidone(*) 120 MG TAB PO SCH (18:23)
[2019-04-04] MEDS: Escitalopram * 10 MG TAB PO SCH (20:49)
[2019-04-04] MEDS: traZODone TAB* 50 MG TAB PO SCH (20:50)
[2019-04-05] MEDS: Lisinopril TAB* 10 MG PO SCH (09:38)
[2019-04-05] MEDS: Vitamin THERAPEUTIC TAB PO SCH (09:38)
[2019-04-05] MEDS: Lurasidone(*) 120 MG TAB PO SCH (17:34)
[2019-04-05] MEDS: Al Hydrox/Mg Hydrox/Simet LIQ* 30 ML UDC PO PRN (18:43)
[2019-04-05] MEDS: Escitalopram * 10 MG TAB PO SCH (22:02)
[2019-04-05] MEDS: traZODone TAB* 50 MG TAB PO SCH (22:02)
[2019-04-06] MEDS: Lisinopril TAB* 10 MG PO SCH (10:16)
[2019-04-06] MEDS: Vitamin THERAPEUTIC TAB PO SCH ×2 (10:17→10:18)
[2019-04-06] MEDS: Lurasidone(*) 120 MG TAB PO SCH (17:06)
[2019-04-06] MEDS: traZODone TAB* 50 MG TAB PO SCH (20:14)
[2019-04-06] MEDS: Escitalopram * 10 MG TAB PO SCH (20:15)
[2019-04-07 09:09] VITALS: BP 121/88
[2019-04-07] MEDS: Lisinopril TAB* 10 MG PO SCH (09:43)
[2019-04-07] MEDS: Vitamin THERAPEUTIC TAB PO SCH (09:44)
[2019-04-07] MEDS: Al Hydrox/Mg Hydrox/Simet LIQ* 30 ML UDC PO PRN (13:26)
[2019-04-07] MEDS ORDERED: Lurasidone(*) 120 MG TAB PO SCH (14:00)
--- NOTE | 2019-04-08 01:35 | DS ---
DISCHARGE SUMMARY: DATE OF ADMISSION: 03/30/19 DATE OF DISCHARGE: 04/07/19 PROVIDER: Marina Doll NP in Psychiatry. SUPERVISING PHYSICIAN: Dr. Hugo Hawley.* (DICTATED BY MARINA DOLL NP ) DIAGNOSIS: Bipolar I disorder, current episode mixed with psychotic features. CONDITION AT THE TIME OF DISCHARGE: Improved, psychiatrically cleared, stable. Leonidas participated in some groups and became very social with peers. His mom and dad are agreeable to discharge, as is Leonidas. He did well here psychiatrically. He tolerated the addition of medications with some trouble, but he did eventually agree to take them including the addition of Latuda. He will be attending [facility] in [place], [place]. MENTAL STATUS EXAM: At the time of discharge, Leonidas is calm and cooperative, makes good eye contact. He is alert and oriented x4. His grooming is good. His speech pace is normal. His thought processes are logical. He is not psychotic or delusional. He denies AH, VH, HI, and SI. His insight and judgment are fair to good. He is willing to follow up and he is urged to see a therapist. DISCHARGE INSTRUCTIONS TO THE PATIENT: A. Medications: 1. Klonopin 1 mg b.i.d. p.r.n. anxiety, dispensed 60. 2. Benadryl 50 mg p.r.n. insomnia or allergic reaction. 3. Duloxetine 60 mg daily. 4. Escitalopram 10 mg at bedtime. 5. Guaifenesin 10 mL q.6 hours p.r.n. cough. 6. Ibuprofen 600 mg q.6 hours p.r.n. pain. 7. Lisinopril 10 mg daily. 8. Lurasidone 120 mg daily at 5 p.m. with the meal, dispensed 30. 9. Saline nasal spray p.r.n. congestion. 10. Trazodone 150 mg at bedtime. 11. Vitamin. B. Diet is regular, although calorie restriction is recommended. C. Activities as tolerated. He is a nonsmoker. There are no studies pending at the time of discharge. D. Followup care. He has appointments at [facility] with Luisa Cowart , nurse practitioner on 04/10/19 at 10 a.m., and the therapy appointment with Lui Mccallum at 11:15 on Sunday04/11/19. He is also referred to his primary care provider, Helio Alvarado MD. He is also referred to the [facility] program, which has an open enrollment day every at 10 a.m. E. Disposition. He is being discharged to his father's home where he lives. F. Substance abuse followup is not indicated. HOSPITAL COURSE: Part A: Chief complaint: "I have been still really depressed , very anxious still. I did feel suicidal since discharge." The last couple of days, I have thought of jumping out of a car or jumping at the traffic." The patient is a 24-year-old single white male with a history of depression, anxiety, and racing thoughts, who arrives brought in by his parents, and is here on the involuntary status after returning to the emergency department after discharge a few days prior with symptoms of suicide. Leonidas states he has been feeling impulsive. He also notes he has been " spiteful about the situation." The situation is that he has $13,000 in debt, $ 9000 dollars of that is a car loan. He has also got bills from the hospital, he says, which likely a total amount of more than $14,000. This is an odd thing as he had not mentioned that earlier, but that is what he says was spurring his suicidal ideation. Leonidas sits very quietly in the comfort room with me and Mando Penaloza LMSW, and his mother, Radha Torres. He is pleasant and he has on occasion a smile on his face, but he is nearly silent most of the time. When I asked him what is going on in his head that he is so quiet, he states he has racing thoughts, he cannot name what those thoughts are about, and he states that they keep him quiet a lot of the time. It seems that he cannot find his thoughts much of the time and that is something that is causing him great anxiety. Upon his discharge here, he was given Risperdal, duloxetine, and Ativan. He went to see his psychiatrist and it seems he has had a great deal of trust in that person. She suggested that he stop Risperdal and he did try that for a day , but he states he could not sleep following that. He suggests himself that he try Abilify and Lexapro, he is not excited about Ativan, so we will change it to Klonopin. He states he was having suicidal ideation on Sunday night. He states his racing thoughts are "making me disengaged," and he is looking for more support. His sleep has been disrupted, his interest is reduced and his energy is reduced. He complains that Risperdal is making him drowsy. He is unable to concentrate. He is sitting quite still and he walks somewhat slowly. Part B: Psychiatric treatment was rendered: Leonidas was admitted to the Adult Behavioral Unit and placed on 15-minute checks for safety. He did advance to 30 - minute checks and staff pass privileges. He was safe on all checks. Leonidas did well on the unit and went to groups. He interacted with peers well. He did do a lot of sleeping, but he had had trouble sleeping before he got here. We made a number of medication changes; the most important two are the addition of Lexapro 10 mg daily and Latuda 120 mg daily. The duloxetine can be discontinued. We also tried Abilify, but we did not get rapid results with that and he despite the fact that he chose that medication, he was able to accept that another medication might work better if it was chosen by a prescriber. We also changed his Ativan to Klonopin, and changed it from scheduled to p.r.n. He is on an atypical antipsychotic. So, it should be noted that his hemoglobin A1c is 5.3, triglycerides are 117, cholesterol 183, LDL cholesterol 122, HDL cholesterol is 38.1. As a side note, his TSH is 3.69. We did consider starting a mood stabilizer in addition to Latuda, but that change would have required a longer hospitalization, which Leonidas was not interested in further. It is unclear whether that is a necessity, as Latuda has mood stabilizing properties. I did meet with his mother, who is a very concerned person. She cares very deeply for Leonidas. She also enables him significantly, as does his father Lui. Lui called me several times wanting updates about his son's treatment, which could have been gotten from his son had he asked him. Both parents when they visit ask so frequently, "how are you, Leonidas?" that he becomes frustrated and more anxious and tends to develop further speech latency, which had disappeared by his day of discharge today, 04/07/19. Leonidas asked me to tell his mother about that observation with which he agreed very strongly and I encouraged Leonidas to tell her himself, which he was able to do, as well as to offer alternative things to talk about besides just "how is he doing" which has been observed to make him incredibly anxious, especially when asked multiple times. The speech latencies, which were extensive and could go on for up to 2 minutes if allowed to go that long, have been nearly eliminated and now they seemed to be equated with the level of anxiety he has. A nutrition consult was entered for Leonidas, but as is typical with Leonidas, he changed his mind about the outcome of that consult. The dietitian suggested he eat low- calorie, low-fat foods. When those arrived, Leonidas felt like it was not enough food and he wanted more. So, he continued to eat sandwiches, which caused some consternation among staff and peers. In the end, we eliminated that order and allowed him to eat what he wanted with the acknowledgement that reducing calories is going to be quispe to keeping him healthy. Leonidas is very excited to be leaving. He looks forward to going home with his father and is ready to leave a little bit early with his mom, who will then deliver him to his father's care. He is future oriented. He is denying suicide , homicide, and racing thoughts. He is happy with his choice of Latuda. MARINA DOLL, SHRUTI [id number]/[facility] #: [id number] MEGAN
--- NOTE | 2019-04-08 13:01 | CONS ---
PSYCHOLOGICAL REPORT: DATE OF CONSULT: 04/07/19 PROCEDURE CODE: 32433 TEST ADMINISTERED: Leonidas completed the [place] Multiphasic Personality Inventory on 2 occasions across either one of his recent admissions to this unit and was also administered the Rorschach inkblot projective examination. RELEVANT HISTORY: Leonidas has had 5 psychiatric admissions to date with 2 occurring in very close proximity to this unit. He presented with speech latencies and expressed some paranoid thoughts and belief as well as exhibited paranoid behaviors. Although he was compliant with group attendance, he was very difficult to engage in any substantive conversation either in a group context or in individual conversation. He would often ask for elaborate interpretations of responses despite dearth of information provided. Historically, Leonidas has had a series of different jobs where he has had problems maintaining employment due to what he perceives as stressors occurring therein. 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 He currently anticipates moving back home with his parents in [place], [place] although he had been living in [facility]. Behaviorally, Leonidas has exhibited flat and variable affect throughout much of his stay. As mentioned, he attends programming in a consistent fashion, but is very difficult to engage in substantial conversation once he is part of the group process. He was interested in redoing the MMPI-2 after initial effort initial efforts were unsatisfactory to his thinking. He took approximately a week to complete his second effort and continues to show very significant thought disorder psychopathology. At the time of his discharge Leonidas was somewhat more forthcoming in conversation and impressed as reacting to his mother positively. His mother was very engaged in discussion of test results and in discussing any helpful lifestyle interventions to help diminish his symptoms. TEST RESULTS: His second effort to complete the MMPI, he provides extremely distressed profile, which often is characterized as "fake bad" effort, although in Leonidas's case it is not to reflect earnest endorsement style secondary to psychotic range symptomatology characterized by paranoid mentation. He also elevates the neurotic trial including depression to a significant degree, but his endorsement of interpersonal duress and thought disorder symptomatology certainly outstrips neurotic scales very significantly. He is paranoid and schizophrenia endorsement was as high as T=105. His current effort is thought to be descriptive of his rather profound problem in establishing and maintaining emotional connection to the persons around him in inpatient context. Prior efforts to administer to Rorschach were essentially unproductive , as Leonidas either could not or refuse to offer any projections on 5 of the 10 cards. Despite this behavior, Leonidas demanded interpretation of impercepts that he saw but did not respond to encouragement to offer more ideas when presenting various cards. IMPRESSION AND RECOMMENDATIONS: Concerns with Leonidas are essentially twofold, firstly in reducing incidence and severity of paranoid mentation and speech latencies. The second concern pertains to negative symptom sets as Leonidas seems to have difficulty interacting socially. At first, this was thought to be part of latencies, but as treatment progressed, it seems that his paranoid ideation was part of his evasiveness and guardedness. He generally speaking was not spontaneous in conversation at least with this sba underwriter. That said, he was open to staff suggestions regarding group attendance and generally speaking seemed interested in content although he generally speaking was quiet through group processes. Diagnostic impressions revolve around possible paranoid schizophrenia versus bipolar 1 disorder characterized by paranoid mentation. His sporadic vocational function may support the latter as he appears to have periods of better functioning with concerns that as he ages his difficulties may progress towards a more persisting and severe demarcation of symptomatology. [id number]/[facility] #: [id number] MEGAN
== END 2019-04-07 13:45 | disposition home or self-care (01) | DRG 753 ==
LOC: ED 12:15 → BSU 15:06
PROVIDERS: ADMIT Psychiatry & Neurology Psychiatry; ATTEND Psychiatry & Neurology Psychiatry
PROC: GZHZZZZ Group Psychotherapy (ICD-10-PCS; principal; 2019-04-02)
DX: F31.64 Bipolar disorder, current episode mixed, severe, with psychotic features (principal); R45.851 Suicidal ideations; Z68.42 Body mass index [BMI] 45.0-49.9, adult; I10 Essential (primary) hypertension; F41.9 Anxiety disorder, unspecified; J45.909 Unspecified asthma, uncomplicated; F34.1 Dysthymic disorder; E66.3 Overweight; F40.10 Social phobia, unspecified; Z88.1 Allergy status to other antibiotic agents; Z85.820 Personal history of malignant melanoma of skin; Z88.2 Allergy status to sulfonamides; Z81.1 Family history of alcohol abuse and dependence; Z81.3 Family history of other psychoactive substance abuse and dependence; Z79.899 Other long term (current) drug therapy
CPT/HCPCS: 36415; 80053; 80061; 80307; 80320; 80329; 81003; 83036; 84443; 85025; 90853; 99222; 99232; 99238; 99284; A9270-GY; G0480

== ENCOUNTER 2021-06-13 13:54 | Inpatient (IN) ==
[2021-06-13 15:10] LABS: ABS Basophils 0.1 10^3/ul (0-0.2); ABS Eosinophils 0.1 10^3/ul (0-0.6); ABS Lymphocytes 1.7 10^3/ul (1.0-4.8); ABS Monocytes 0.4 10^3/ul (0-0.8); ABS Neutrophils 4.1 10^3/ul (1.5-7.7); Eosinophil % 1.6 %; Hematocrit 45 % (42-52); Hemoglobin 14.9 g/dL (14.0-18.0); Lymphocyte % 27.1 %; Mean Corpuscular HGB Conc 33 g/dL (31-36); Mean Corpuscular Hemoglobin 27 pg (27-31); Mean Corpuscular Volume 83 fL (80-94); Mean Platelet Volume 8.4 fL (7.4-10.4); Nucleated Red Blood Cells % 0.1; Platelet Count 203 10^3/uL (150-450); Red Blood Count 5.46 10^6 /uL (4.18-5.48); Red Cell Distribution Width 13 % (10-15); White Blood Count 6.3 10^3/uL (3.5-10.8)
[2021-06-13 15:14] LABS: Urine Appearance Clear; Urine Bilirubin Negative (Negative); Urine Blood Negative (Negative); Urine Color Yellow; Urine Glucose 3+(>=500 mg/dL) (Negative); Urine Ketones Negative (Negative); Urine Nitrite Negative (Negative); Urine Protein Negative (Negative); Urine Specific Gravity 1.017 (1.002-1.030); Urine Urobilinogen Positive (Negative)
[2021-06-13 15:15] LABS: ALT 20 U/L (7-52); AST 15 U/L (13-39); Albumin 4.4 g/dL (3.2-5.2); Albumin/Globulin Ratio 1.6 (1-3); Alkaline Phosphatase 71 U/L (35-149); Anion Gap 9 mmol/L (2-11); Blood Urea Nitrogen 16 mg/dL (6-24); CO2 Carbon Dioxide 22 mmol/L (22-32); Calcium 9.7 mg/dL (8.6-10.3); Chloride 103 mmol/L (101-111); Globulin 2.7 g/dL (2-4); Glucose 281 mg/dL (70-100); Potassium 4.2 mmol/L (3.5-5.0); Sodium 134 mmol/L (135-145); Total Protein 7.1 g/dL (6.4-8.9); eGFR CKD-EPI 130.7 (>60)
[2021-06-13 15:55] LABS: Urine Benzodiazepine Screen None Detected (None Detect); Urine Cannabinoids Screen None Detected (None Detect); Urine Opiates Screen None Detected (None Detect)
[2021-06-13 16:01] LABS: TSH Ultra Thyroid Stim Horm 3.09 mcIU/mL (0.34-5.60)
[2021-06-13 16:15] LABS: Acetaminophen < 15 mcg/mL; Alcohol, S < 13 mg/dL (<13); Salicylate < 2.50 mg/dL (<30)
[2021-06-13] MEDS ORDERED: Al Hydrox/Mg Hydrox/Simet LIQ 30 ML UDC PO PRN (21:27)
[2021-06-13] MEDS ORDERED: Saline NASAL SPRAY 0.65% BTL BOTH NARES PRN (21:30)
[2021-06-13] MEDS ORDERED: CMCS: guanFACINE 1 mg TAB (NF) PO SCH (22:00)
[2021-06-13] MEDS ORDERED: NF: Dulaglutide (NF) 0.75 MG/0.5 ML SYRINGE SUBCUT SCH (22:00)
[2021-06-13] MEDS ORDERED: Dextrose 50% Syringe 50 ml 25 GM/50 ML SYRINGE IV PUSH PRN (22:57)
[2021-06-14] MEDS ORDERED: BREXPIPRAZOLE 0.5 MG PO SCH (09:00)
[2021-06-14] MEDS: Multivitamins/Minerals TAB PO SCH (09:13)
[2021-06-14] MEDS: Vitamin THERAPEUTIC TAB PO SCH (09:18)
[2021-06-14] MEDS: CMCS: Vortioxetine 10 mg TAB (NF) PO SCH (12:57)
[2021-06-14] MEDS ORDERED: CMCS: guanFACINE 1 mg TAB (NF) PO SCH (21:00)
[2021-06-15 07:51] LABS: Calcium 9.1 mg/dL (8.6-10.3); HDL Cholesterol 33.3 mg/dL; Potassium 4.1 mmol/L (3.5-5.0)
[2021-06-15] MEDS: Vitamin THERAPEUTIC TAB PO SCH (08:44)
[2021-06-15] MEDS: CMCS: Vortioxetine 10 mg TAB (NF) PO SCH (08:44)
[2021-06-15] MEDS: Multivitamins/Minerals TAB PO SCH (08:44)
[2021-06-15] MEDS: Benzocaine/Menthol LOZ PO PRN (15:31)
[2021-06-16] MEDS: Benzocaine/Menthol LOZ PO PRN ×2 (03:48→15:28)
[2021-06-16] MEDS: Multivitamins/Minerals TAB PO SCH (08:40)
[2021-06-16] MEDS: CMCS: Vortioxetine 10 mg TAB (NF) PO SCH (08:40)
[2021-06-16] MEDS: Vitamin THERAPEUTIC TAB PO SCH (08:42)
[2021-06-17] MEDS: Benzocaine/Menthol LOZ PO PRN ×2 (06:33→13:47)
[2021-06-17] MEDS: Multivitamins/Minerals TAB PO SCH (09:08)
[2021-06-17] MEDS: CMCS: Vortioxetine 10 mg TAB (NF) PO SCH (09:09)
[2021-06-17] MEDS: Vitamin THERAPEUTIC TAB PO SCH (09:11)
[2021-06-18] MEDS: Benzocaine/Menthol LOZ PO PRN ×3 (03:51→16:40)
[2021-06-18] MEDS: Multivitamins/Minerals TAB PO SCH (08:53)
[2021-06-18] MEDS: Vitamin THERAPEUTIC TAB PO SCH (08:53)
[2021-06-18] MEDS: CMCS: Vortioxetine 10 mg TAB (NF) PO SCH (08:56)
[2021-06-19] MEDS: CMCS: Vortioxetine 10 mg TAB (NF) PO SCH (09:17)
[2021-06-19] MEDS: Vitamin THERAPEUTIC TAB PO SCH (09:20)
[2021-06-19] MEDS: Multivitamins/Minerals TAB PO SCH (09:20)
[2021-06-19] MEDS: Benzocaine/Menthol LOZ PO PRN ×2 (10:02→17:19)
[2021-06-20 08:05] VITALS: BP 145/92
[2021-06-20] MEDS: Multivitamins/Minerals TAB PO SCH (08:50)
[2021-06-20] MEDS: CMCS: Vortioxetine 10 mg TAB (NF) PO SCH (08:53)
[2021-06-20] MEDS: Benzocaine/Menthol LOZ PO PRN (09:16)
[2021-06-20] MEDS: Vitamin THERAPEUTIC TAB PO SCH (10:33)
== END 2021-06-20 12:59 | disposition home or self-care (01) | DRG 751 ==
LOC: ED 13:54 → BSU 22:29
PROVIDERS: ADMIT Psychiatry & Neurology Psychiatry; ATTEND Psychiatry & Neurology Psychiatry

== ENCOUNTER 2021-06-30 16:51 | Inpatient (IN) ==
[2021-06-30 18:14] LABS: Urine Appearance Clear; Urine Bilirubin Negative (Negative); Urine Blood Negative (Negative); Urine Color Straw; Urine Glucose 3+(>=500 mg/dL) (Negative); Urine Ketones Negative (Negative); Urine Nitrite Negative (Negative); Urine Protein Negative (Negative); Urine Specific Gravity 1.032 (1.002-1.030); Urine Urobilinogen Negative (Negative)
[2021-06-30 18:42] LABS: ALT 21 U/L (7-52); Acetaminophen < 15 mcg/mL; Albumin 4.7 g/dL (3.2-5.2); Albumin/Globulin Ratio 1.7 (1-3); Alcohol, S < 13 mg/dL (<13); Alkaline Phosphatase 77 U/L (35-149); Blood Urea Nitrogen 17 mg/dL (6-24); CO2 Carbon Dioxide 22 mmol/L (22-32); Calcium 9.5 mg/dL (8.6-10.3); Chloride 100 mmol/L (101-111); Globulin 2.8 g/dL (2-4); Glucose 491 mg/dL (70-100); Salicylate < 2.50 mg/dL (<30); Sodium 132 mmol/L (135-145); Total Protein 7.5 g/dL (6.4-8.9); eGFR CKD-EPI 127.9 (>60)
[2021-06-30 18:49] LABS: Urine Benzodiazepine Screen None Detected (None Detect); Urine Cannabinoids Screen None Detected (None Detect); Urine Opiates Screen None Detected (None Detect)
[2021-06-30 19:19] LABS: Anion Gap 10 mmol/L (2-11)
[2021-06-30 19:29] LABS: TSH Ultra Thyroid Stim Horm 4.68 mcIU/mL (0.34-5.60)
[2021-06-30 23:22] LABS: ABS Basophils 0.1 10^3/ul (0-0.2); ABS Eosinophils 0.1 10^3/ul (0-0.6); ABS Lymphocytes 2.6 10^3/ul (1.0-4.8); ABS Monocytes 0.4 10^3/ul (0-0.8); ABS Neutrophils 4.3 10^3/ul (1.5-7.7); Eosinophil % 1.5 %; Hematocrit 44 % (42-52); Hemoglobin 15.1 g/dL (14.0-18.0); Lymphocyte % 34.6 %; Mean Corpuscular HGB Conc 34 g/dL (31-36); Mean Corpuscular Hemoglobin 27 pg (27-31); Mean Corpuscular Volume 80 fL (80-94); Mean Platelet Volume 8.7 fL (7.4-10.4); Platelet Count 203 10^3/uL (150-450); Red Blood Count 5.57 10^6 /uL (4.18-5.48); Red Cell Distribution Width 13 % (10-15); White Blood Count 7.5 10^3/uL (3.5-10.8)
[2021-07-01 00:46] LABS: Potassium Redraw 4.1 mmol/L (3.5-5.0)
[2021-07-01] MEDS ORDERED: Al Hydrox/Mg Hydrox/Simet LIQ 30 ML UDC PO PRN (06:22)
[2021-07-01] MEDS: Vitamin THERAPEUTIC TAB PO SCH (10:42)
[2021-07-01] MEDS: NF:Dulaglutide (NF) 0.75 MG/0.5 ML SYRINGE SUBCUT SCH (13:06)
[2021-07-01] MEDS: CMC:Vortioxetine 10 mg TAB (NF) PO SCH (13:18)
[2021-07-01] MEDS ORDERED: Dextrose 50% Syringe 50 ml 25 GM/50 ML SYRINGE IV PUSH PRN (15:01)
[2021-07-02] MEDS: CMC:Vortioxetine 10 mg TAB (NF) PO SCH (08:54)
[2021-07-02] MEDS: Vitamin THERAPEUTIC TAB PO SCH (09:45)
[2021-07-03] MEDS: Vitamin THERAPEUTIC TAB PO SCH (08:10)
[2021-07-03] MEDS: CMC:Vortioxetine 10 mg TAB (NF) PO SCH (08:11)
[2021-07-04 08:40] LABS: Albumin 4.2 g/dL (3.2-5.2); Albumin/Globulin Ratio 1.6 (1-3); Calcium 9.7 mg/dL (8.6-10.3); Globulin 2.6 g/dL (2-4); Potassium 3.8 mmol/L (3.5-5.0); Total Bilirubin 0.7 mg/dL (0.2-1.0); Total Protein 6.8 g/dL (6.4-8.9); eGFR CKD-EPI 127.9 (>60)
[2021-07-04] MEDS: Vitamin THERAPEUTIC TAB PO SCH (09:04)
[2021-07-04] MEDS: CMC:Vortioxetine 10 mg TAB (NF) PO SCH (09:06)
[2021-07-04 09:50] LABS: HDL Cholesterol 33.4 mg/dL
[2021-07-05] MEDS: CMC:Vortioxetine 10 mg TAB (NF) PO SCH (08:04)
[2021-07-05] MEDS: Vitamin THERAPEUTIC TAB PO SCH (08:06)
[2021-07-06] MEDS: CMC:Vortioxetine 10 mg TAB (NF) PO SCH (07:49)
[2021-07-06] MEDS: Vitamin THERAPEUTIC TAB PO SCH (08:40)
[2021-07-06] MEDS ORDERED: Paliperidone SUSTENNA 234 MG/1.5 ML IM ONE (11:00)
[2021-07-07] MEDS: Vitamin THERAPEUTIC TAB PO SCH (08:20)
[2021-07-07] MEDS: CMC:Vortioxetine 10 mg TAB (NF) PO SCH (08:21)
[2021-07-08] MEDS: Vitamin THERAPEUTIC TAB PO SCH (08:56)
[2021-07-08] MEDS: CMC:Vortioxetine 10 mg TAB (NF) PO SCH (08:57)
[2021-07-09] MEDS: Vitamin THERAPEUTIC TAB PO SCH (07:34)
[2021-07-09] MEDS: CMC:Vortioxetine 10 mg TAB (NF) PO SCH (07:36)
[2021-07-09] MEDS: NF:Dulaglutide (NF) 0.75 MG/0.5 ML SYRINGE SUBCUT SCH (07:59)
[2021-07-10] MEDS: CMC:Vortioxetine 10 mg TAB (NF) PO SCH (07:47)
[2021-07-10] MEDS: Vitamin THERAPEUTIC TAB PO SCH (07:48)
[2021-07-11 08:12] VITALS: BP 142/92
[2021-07-11] MEDS: CMC:Vortioxetine 10 mg TAB (NF) PO SCH (09:25)
[2021-07-11] MEDS: Vitamin THERAPEUTIC TAB PO SCH (09:25)
[2021-07-11] MEDS ORDERED: COVID-19 VACCINE, MRNA(MODERNA) BOOSTER/PF 50 MCG/0.25 ML IM ONE (09:54)
[2021-07-11] MEDS ORDERED: Paliperidone SUSTENNA 156 MG/1 ML IM ONE (11:30)
[2021-07-13] MEDS ORDERED: PTO:Dulaglutide (NF) 0.75 MG/0.5 ML SYRINGE SUBCUT SCH (16:00)
== END 2021-07-11 12:50 | disposition home or self-care (01) | DRG 750 ==
LOC: ED 16:51 → BSU 07-01 08:35
PROVIDERS: ADMIT Psychiatry & Neurology Psychiatry; ATTEND Student in an Organized Health Care Education/Training Program

== ENCOUNTER 2022-03-03 14:46 | Inpatient (IN) ==
[2022-03-03] MEDS ORDERED: Al Hydrox/Mg Hydrox/Simet LIQ 30 ML UDC PO PRN (23:00)
[2022-03-03] MEDS: CMCS: Vortioxetine 10 mg TAB (NF) PO SCH (23:34)
[2022-03-04 08:16] LABS: HDL Cholesterol 34.1 mg/dL
[2022-03-04] MEDS: CMCS:Atomoxetine 40 mg CAP (NF) PO SCH (08:53)
[2022-03-04] MEDS: Vitamin THERAPEUTIC TAB PO SCH (08:55)
[2022-03-04] MEDS: CMCS: Vortioxetine 10 mg TAB (NF) PO SCH (21:23)
[2022-03-05] MEDS: CMCS:Atomoxetine 40 mg CAP (NF) PO SCH (08:03)
[2022-03-05] MEDS: Vitamin THERAPEUTIC TAB PO SCH (08:04)
[2022-03-05] MEDS: Insulin GLARGINE 100 un/ml 10 ml VIAL SUBCUT SCH (08:09)
[2022-03-05 12:04] LABS: Albumin 4.4 g/dL (3.2-5.2); Albumin/Globulin Ratio 1.8 (1-3); Calcium 9.5 mg/dL (8.6-10.3); Globulin 2.4 g/dL (2-4); Total Protein 6.8 g/dL (6.4-8.9); eGFR CKD-EPI 127.1 (>60)
[2022-03-05] MEDS: CMCS: Vortioxetine 10 mg TAB (NF) PO SCH (21:24)
[2022-03-06] MEDS: Insulin GLARGINE 100 un/ml 10 ml VIAL SUBCUT SCH (08:20)
[2022-03-06] MEDS: Vitamin THERAPEUTIC TAB PO SCH (08:26)
[2022-03-06] MEDS: CMCS:Atomoxetine 40 mg CAP (NF) PO SCH (08:28)
[2022-03-06] MEDS ORDERED: Dextrose 50% Syringe 50 ml 25 GM/50 ML SYRINGE IV PUSH PRN (13:01)
[2022-03-06] MEDS: CMCS: Vortioxetine 10 mg TAB (NF) PO SCH (20:45)
[2022-03-07] MEDS: Vitamin THERAPEUTIC TAB PO SCH (08:13)
[2022-03-07] MEDS: Insulin GLARGINE 100 un/ml 10 ml VIAL SUBCUT SCH (20:33)
[2022-03-07] MEDS: CMCS: Vortioxetine 10 mg TAB (NF) PO SCH (21:07)
[2022-03-08] MEDS: Vitamin THERAPEUTIC TAB PO SCH (08:12)
[2022-03-08] MEDS: CMCS: Vortioxetine 10 mg TAB (NF) PO SCH (21:17)
[2022-03-08] MEDS: Insulin GLARGINE 100 un/ml 10 ml VIAL SUBCUT SCH (21:29)
[2022-03-09] MEDS: Vitamin THERAPEUTIC TAB PO SCH (08:12)
[2022-03-09] MEDS ORDERED: Benzocaine (DENTAL) 10% TOP.GEL TOPICAL PRN (19:17)
[2022-03-09] MEDS: CMCS: Vortioxetine 10 mg TAB (NF) PO SCH (20:26)
[2022-03-09] MEDS: Insulin GLARGINE 100 un/ml 10 ml VIAL SUBCUT SCH (20:33)
[2022-03-10] MEDS: Vitamin THERAPEUTIC TAB PO SCH (08:27)
[2022-03-10] MEDS: Insulin GLARGINE 100 un/ml 10 ml VIAL SUBCUT SCH (20:57)
[2022-03-10] MEDS: CMCS: Vortioxetine 10 mg TAB (NF) PO SCH (21:03)
[2022-03-11] MEDS: Vitamin THERAPEUTIC TAB PO SCH (07:51)
[2022-03-11] MEDS: CMCS: Vortioxetine 10 mg TAB (NF) PO SCH (21:53)
[2022-03-11] MEDS: Insulin GLARGINE 100 un/ml 10 ml VIAL SUBCUT SCH (21:57)
[2022-03-12] MEDS: Vitamin THERAPEUTIC TAB PO SCH (08:50)
[2022-03-12] MEDS: CMCS: Vortioxetine 10 mg TAB (NF) PO SCH (22:09)
[2022-03-12] MEDS: Insulin GLARGINE 100 un/ml 10 ml VIAL SUBCUT SCH (22:14)
[2022-03-13] MEDS: Vitamin THERAPEUTIC TAB PO SCH (09:27)
[2022-03-13] MEDS: CMCS: Vortioxetine 10 mg TAB (NF) PO SCH (20:36)
[2022-03-13] MEDS: Insulin GLARGINE 100 un/ml 10 ml VIAL SUBCUT SCH (20:38)
[2022-03-14] MEDS: Vitamin THERAPEUTIC TAB PO SCH (09:21)
[2022-03-14 09:32] VITALS: BP 122/77
== END 2022-03-14 15:38 | disposition home or self-care (01) | DRG 750 ==
LOC: ED 14:46 → EDHOLD 21:00 → BSU 23:48
PROVIDERS: ADMIT Psychiatry & Neurology Addiction Psychiatry; ATTEND Psychiatry & Neurology Addiction Psychiatry